=== PATIENT | female | born 1930 | race Caucasian/White ===

== ENCOUNTER 2018-08-20 13:24 | Inpatient (IN) | payer MEDICARE, BC ==
--- NOTE | 2018-08-20 13:42 | ED ---
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 The patient landed on her hip and primarily complains of left hip pain. She denies hitting her head and LOC. She rates her pain 5/10 in severity. - History of Current Complaint Stated Complaint: FALL/LEFT HIP PAIN Time Seen by Provider: 08/20/18 13:30 Hx Obtained From: Patient Mechanism of Injury: Fall Onset/Duration: Started Minutes Ago, Traumatic, Still Present Onset of Pain: Prior to Arrival Onset Severity: Moderate Current Severity: Moderate Pain Scale Used: 0-10 Numeric - Allergy/Home Medications Allergies/Adverse Reactions: Allergies Allergy/AdvReac Type Severity Reaction Status Date / Time No Known Allergies Allergy Verified 08/20/18 16:16 Home Medications: Home Medications NK [No Home Medications Reported] 08/20/18 [History Confirmed 08/20/18] PMH/Surg Hx/FS Hx/Imm Hx Cardiovascular History: Reports: Hx Hypertension Respiratory History: Denies: Hx Asthma - Cancer History Hx Chemotherapy: No Hx Radiation Therapy: No - Family History Known Family History: Negative: Cardiac Disease, Hypertension - Social History Substance Use Type: Reports: None Hx Tobacco Use: No Review of Systems Positive: Other - Left Hip pain Negative: Syncope All Other Systems Reviewed And Are Negative: Yes Physical Exam - Summary Physical Exam Summary: VITAL SIGNS: Reviewed. GENERAL: Patient is a well-developed and nourished FEMALE who is lying comfortable in the stretcher. Patient is in distress secondary to pain in the left hip. HEAD AND FACE: No signs of trauma. No ecchymosis, hematomas or skull depressions. No sinus tenderness. EYES: PERRLA, EOMI x 2, No injected conjunctiva, no nystagmus. EARS: Hearing grossly intact. Ear canals and tympanic membranes are within normal limits. MOUTH: Oropharynx within normal limits. NECK: Supple, trachea is midline, no adenopathy, no JVD, no carotid bruit, no c- spine tenderness, neck with full ROM. CHEST: Symmetric, no tenderness at palpation LUNGS: Clear to auscultation bilaterally. No wheezing or crackles. CVS: Regular rate and rhythm, S1 and S2 present, no murmurs or gallops appreciated. ABDOMEN: Soft, non-tender. No signs of distention. No rebound no guarding, and no masses palpated. Bowel sounds are normal. EXTREMITIES: FROM in all major joints, no edema, no cyanosis or clubbing. Tenderness in her left hip with no ecchymosis, no deformity. Good pulses and capillary refill. NEURO: Alert and oriented x 3. No acute neurological deficits. Speech is normal and follows commands. SKIN: Dry and warm Triage Information Reviewed: Yes Vital Signs Reviewed: Yes Diagnostics - Laboratory Result Diagrams: 08/20/18 14:09 08/20/18 14:09 Lab Statement: Any lab studies that have been ordered have been reviewed, and results considered in the medical decision making process. - Radiology CXR Radiology Interpretation Completed By: Radiologist Summary of Radiographic Findings: Cardiomegaly. No active cardiopulmonary disease. ED Provider has reviewed this report. Left Hip XR Radiology Interpretation Completed By: Radiologist Summary of Radiographic Findings: Angulated fracture of the proximal left femur. ED Provider has reviewed this report. Adult Trauma Course/Dx - Course Course Of Treatment: Consulted with Dr. Chapman, Orthopedics at 1522 and she accepted the patient for surgery. Assessment/Plan: Blood work without any significant abnormality except for WBCs of 18.6, hemoglobin 9.6, hematocrit is 30 and platelets 346. Hip x-ray shows an angulated fracture of the proximal left femur. Chest x-ray impression: Cardiomegaly. No active Cardiopulmonary disease. I discussed the case with Dr. Reza from orthopedics and he reports that he is unable to perform the surgery for this patient and he recommends for the patient to be transferred to another hospital or to consult with Dr. Chapman from the other group. Therefore discussed the case with Dr. Chapman and he accepted the patient for consultation. He recommends admission to the medical team. I discussed the case with Dr. Moses from the hospital services and she agrees to admit the patient to his services for further workup and management. - Diagnoses Differential Diagnosis/HQI/PQRI: Positive: Contusion(s), Fracture, Dislocation, Sprain, Strain Provider Diagnoses: Femur fracture, left - Physician Notifications Discussed Care Of Patient With: Mykel Erwin - Orthopedics Time Discussed With Above Provider: 15:11 - Recommended to transfer or wait for Dr. Chapman to come on shift. Instructed by Provider To: Transfer Discharge - Sign-Out/Discharge Documenting (check all that apply): Patient Departure - Admission Patient Received Moderate/Deep Sedation with Procedure: No - Discharge Plan Condition: Stable Disposition: ADMITTED TO [facility] Referrals: Mandi Oliveira PUBLIC HEALTH PHYSICIAN [Primary Care Provider] - - Billing Disposition and Condition Condition: STABLE Disposition: Admitted to [facility] - Attestation Statements Document Initiated by Priya: Yes Documenting Scribe: Jorge Mejia Provider For Whom Priya is Documenting (Include Credential): Travon Hein MD Scribe Attestation: Jorge Mejias, scribed for Travon Hein MD on 08/20/18 at 1828. Scribe Documentation Reviewed: Yes Provider Attestation: The documentation as recorded by the Jorge weeks accurately reflects the service I personally performed and the decisions made by , Travon Hein MD Status of Scribe Document: Viewed
[2018-08-20 14:16] LABS: ABS Basophils 0.2 10^3/ul (0-0.2); ABS Eosinophils 0 10^3/ul (0-0.6); ABS Lymphocytes 0.7 10^3/ul (1.0-4.8); ABS Neutrophils 16.7 10^3/ul (1.5-7.7); ABS Nucleated RBC 0 10^3/ul; Eosinophil % 0.2 %; Hematocrit 30 % (35-47); Hemoglobin 9.6 g/dl (12.0-16.0); Lymphocyte % 3.9 %; Mean Corpuscular HGB Conc 33 g/dl (31-36); Mean Corpuscular Hemoglobin 31 pg (27-31); Mean Corpuscular Volume 96 fL (80-97); Mean Platelet Volume 7.4 fL (7.4-10.4); Nucleated Red Blood Cells % 0; Platelet Count 346 10^3/ul (150-450); Red Blood Count 3.09 10^6/ul (4.00-5.40); Red Cell Distribution Width 13 % (10.5-15); White Blood Count 18.6 10^3/ul (3.5-10.8)
[2018-08-20 14:37] LABS: C Reactive Protein < 1.00 mg/L (<8.01)
[2018-08-20 15:28] LABS: Urine Appearance Cloudy; Urine Bilirubin Negative (Negative); Urine Blood Negative (Negative); Urine Color Yellow; Urine Glucose Negative (Negative); Urine Ketones Negative (Negative); Urine Nitrite Negative (Negative); Urine Protein Negative (Negative); Urine Specific Gravity 1.012 (1.010-1.030); Urine Urobilinogen Negative (Negative)
[2018-08-20] MEDS ORDERED: Morphine VIAL* 10 MG/ML 1 ML VIAL IV ONE (16:08)
[2018-08-20] MEDS ORDERED: Ondansetron INJ* 2 MG/ML VIAL IV ONE (16:08)
[2018-08-20] MEDS ORDERED: Morphine VIAL* 4 MG/ML VIAL (1 ml vial) ONE (16:14)
[2018-08-20] MEDS ORDERED: Morphine VIAL* 4 MG/ML VIAL (1 ml vial) IV PRN (17:14)
[2018-08-20 17:51] LABS: % Iron Saturation 27 % (15-55); Iron 88 ug/dL (50-212); Total Iron Binding Capacity 332 mcg/dL (250-450); Transferrin 237 mg/dL (203-362)
[2018-08-20 18:11] LABS: Ferritin 22.2 ng/mL (11-307)
[2018-08-20 18:14] LABS: Folate > 20.00 ng/mL (>3.99)
[2018-08-20] MEDS: NS 0.9% 1000 ML** 1,000 ML IV SCH (18:51)
[2018-08-20 18:57] LABS: ALT 10 U/L (7-52); AST 20 U/L (13-39); Albumin 3.6 g/dL (3.2-5.2); Albumin/Globulin Ratio 1.3 (1-3); Alkaline Phosphatase 49 U/L (34-104); Anion Gap 12 mmol/L (2-11); BUN/Creatinine Ratio 18.9 (8-20); Blood Urea Nitrogen 31 mg/dL (6-24); CO2 Carbon Dioxide 20 mmol/L (22-32); Calcium 10.3 mg/dL (8.6-10.3); Chloride 108 mmol/L (101-111); EGFR African American 35.9 (>60); EGFR Non-African American 29.7 (>60); Globulin 2.8 g/dL (2-4); Glucose 176 mg/dL (70-100); Potassium 4.5 mmol/L (3.5-5.0); Sodium 140 mmol/L (135-145); Total Protein 6.4 g/dL (6.4-8.9)
--- NOTE | 2018-08-20 20:01 | HP ---
CC: Mandi Oliveira NP; Dr. Chapman * HISTORY AND PHYSICAL: DATE OF ADMISSION: 08/20/18 PRIMARY CARE PROVIDER: Mandi Oliveira NP CHIEF COMPLAINT: Status post fall and left hip pain. HISTORY OF PRESENT ILLNESS: Sue Hayes is an 88-year-old female with no significant past medical history, who presented to the hospital with a complaint of left hip pain after a fall. The patient stated that she tripped on a carpet in her apartment. She came into the ED with complaints of left hip pain and she was noted to have fracture. Dr. Chapman plans to take the patient to the surgery tomorrow morning. PAST MEDICAL HISTORY: History of bilateral cataract surgery in the past. MEDICATIONS: None. ALLERGIES: No known drug allergies. FAMILY HISTORY: Father with history of heart disease, who in his 70s due to heart issues and mother who had history of stomach cancer. SOCIAL HISTORY: The patient is recently as of several months ago. She lives alone in 1-level home. There is no history of tobacco, alcohol, or drug use. Her surrogate is her son, Shane Hayes. REVIEW OF SYSTEMS: Please see history of present illness. The patient stated that she had been in her usual state of health until she fell. She denies any dizziness, chest pain, shortness of breath, or loss of consciousness during the fall. She stated that she merely tripped. She has no history of exercise intolerance and she never had any cardiac issues. All the remaining 12 systems were reviewed with the patient and were otherwise negative. PHYSICAL EXAMINATION GENERAL: The patient is a very pleasant 88-year-old female, who is in no acute distress. Alert, awake, and oriented x3. VITAL SIGNS: Blood pressure of 114/84, heart rate of 106 and regular, respiratory rate 20, oxygen saturation 99% on room air_. HEENT: Head: Atraumatic, normocephalic. Eyes: Pupils are equal, reactive to light and accommodation. Oropharynx is clear. Mucosa moist. NECK: Supple. No JVD. No bruits bilaterally. RESPIRATORY: Clear to auscultation bilaterally. CARDIOVASCULAR: Regular rate and rhythm. 1/6 systolic ejection murmur noted on auscultation of the right upper sternal border radiating to bilateral carotids. ABDOMEN: Soft, nontender. Bowel sounds are present in all 4 quadrants. EXTREMITIES: There is no edema. Pulses are +2 bilaterally. No clubbing or cyanosis. The left hip is externally rotated and shortened. NEUROLOGIC: Speech is clear. Cranial nerves II through XII are grossly intact. Motor strength is 5/5 bilaterally. PSYCHIATRIC: Very pleasant, cooperative with evaluation, and oriented x3 with no evidence of anxiety or depression. SKIN: On evaluation of the skin, no ecchymotic areas or rashes noted. DIAGNOSTIC STUDIES/LAB DATA: Showed white blood cell count of 18.6, hemoglobin of 9.6, hematocrit of 30, platelets of 346, MCV of 96. CRP of below 1. Remaining chemistries still pending at the time of dictation. Urinalysis was grossly unremarkable. Hip x-ray obtained on 08/20/18, impression: "Angulated fracture of the proximal left femur." The patient's EKG showed sinus tachycardia with a heart rate of 103 beats per minute with likely LVH. There were no old EKGs for comparison. There were nonspecific ST changes in lateral leads from V4 to V6. Chest x-ray, impression: "Cardiomegaly with no active cardiopulmonary disease. " ASSESSMENT AND PLAN: Sue Hayes is an 88-year-old female with no significant past medical history, who presented after a mechanical fall with left hip fracture. The patient was seen by Dr. Chapman' physician assistant finance director and is planned for surgery in the morning. At this point, her RCRI score is 0. She is an acceptable candidate for the anticipated surgery. She is going to be placed n.p.o. in the morning. She has mild normocytic anemia. She is asymptomatic from that standpoint. We are going to repeat the lab work in the morning to confirm. Her chemistry panel is still pending at the time of dictation. For DVT prophylaxis, the patient is going to be placed on heparin subcutaneously. The patient's code status is full. Her surrogate is her son, Shane, as mentioned above. TIME SPENT: Approximately 65 minutes was spent on admission of this patient, more than half that time was spent [id number] with the patient during the interview and physical exam. [id number]/[facility] #: [id number] SORAYA
[2018-08-20] MEDS ORDERED: Heparin VIAL(*) 5000 UNITS/ML VIAL (FIVE THOUSAND) SUBCUT SCH (22:00)
--- NOTE | 2018-08-20 22:18 | CONS ---
ORTHOPEDIC CONSULTATION: DATE OF CONSULT: 08/20/18 ATTENDING PHYSICIAN: Dr. Jorge Chapman. CHIEF COMPLAINT: Left hip pain. HISTORY OF PRESENT ILLNESS: The patient is an 88-year-old pleasant female who presented [place] [facility] [place] at her home trying to brass pickler some salt that was on her rug. She fell on her left side and was unable to ambulate due to severe femur pain. She denies loss of consciousness. She denies hitting her head. She denies other bodily injury upon her fall. PAST MEDICAL HISTORY: Significant for hypertension. MEDICATIONS: She states she takes no regular medications, only takes a multivitamin daily. ALLERGIES: She denies allergy to medications. FAMILY HISTORY: Noncontributory. SOCIAL HISTORY: The patient denies use of alcohol or tobacco or illicit drug use. REVIEW OF SYSTEMS: The patient denies recent loss of consciousness, lightheadedness, dizziness, shortness of breath, chest pain, palpitations, gastrointestinal or genitourinary discomfort. PHYSICAL EXAMINATION: The patient is lying in the emergency room supine. She is alert and oriented x3, in no acute distress, pleasant and cooperative. HEENT : PERRLA. Neck: Supple. Lungs are clear to auscultation. Heart: Regular rate and rhythm. Abdomen: Soft, nontender. Upper extremities within normal limits. Lower extremity shows external rotation and shortening of the left lower extremity. She is able to actively dorsiflex her ankle. She has a 2+ pedal pulse. Her foot is pink and warm. DIAGNOSTIC STUDIES/LAB DATA: Current lab studies reveal a white count of 18.6, hemoglobin 9.6, hematocrit 30. X-ray examination of the left hip revealed displaced angulated subtrochanteric proximal femur fracture. IMPRESSION: Subtrochanteric left femur fracture from mechanical fall. PLAN: The patient is admitted to Dr. Moses/medical service. She will be n.p.o. after midnight tonight for a probable long intramedullary gamma nail in the morning, 08/21/18, with Dr. Jorge Chapman. I briefly discussed the nature of her injury and the need for surgical fixation. She understands and she elects to proceed. She will need to be on a blood thinner postoperatively to help prevent DVT. She lives alone and may require rehab prior to returning to independent status. She will be seen in the morning by Dr. Chapman prior to surgery. KALYANI CALLAWAY [id number]/[facility] #: [id number] [facility]ITALSyd[place]
[2018-08-20] MEDS: Acetaminophen TAB* 325 MG PO PRN (23:33)
[2018-08-21] MEDS: NS 0.9% 1000 ML** 1,000 ML IV SCH (04:43)
[2018-08-21 06:11] LABS: ABS Basophils 0 10^3/ul (0-0.2); ABS Eosinophils 0 10^3/ul (0-0.6); ABS Lymphocytes 1.8 10^3/ul (1.0-4.8); ABS Monocytes 1.5 10^3/ul (0-0.8); ABS Neutrophils 9.3 10^3/ul (1.5-7.7); ABS Nucleated RBC 0 10^3/ul; Eosinophil % 0.2 %; Hematocrit 24 % (35-47); Hemoglobin 7.8 g/dl (12.0-16.0); Lymphocyte % 14.3 %; Mean Corpuscular HGB Conc 33 g/dl (31-36); Mean Corpuscular Hemoglobin 32 pg (27-31); Mean Corpuscular Volume 95 fL (80-97); Mean Platelet Volume 7.6 fL (7.4-10.4); Nucleated Red Blood Cells % 0; Platelet Count 253 10^3/ul (150-450); Red Blood Count 2.47 10^6/ul (4.00-5.40); Red Cell Distribution Width 13 % (10.5-15); White Blood Count 12.7 10^3/ul (3.5-10.8)
[2018-08-21 06:26] LABS: BUN/Creatinine Ratio 18.5 (8-20); EGFR African American 28.6 (>60); EGFR Non-African American 23.6 (>60); Potassium 4.5 mmol/L (3.5-5.0)
--- NOTE | 2018-08-21 08:27 | PN ---
Progress Note - Progress Note Date of Service: 08/21/18 Note: The patient had a comminuted reverse obliquity peritrochanteric fracture of the left hip. Please see the full consult note dictated by KALYANI Junior. We will plan for surgical stabilization with a long cephalomedullary implant ( long gamma nail) this morning.
[2018-08-21 08:36] LABS: Activated Partial Thrombo Time 26.8 seconds (26.0-36.3); INR 0.99 (0.77-1.02)
[2018-08-21] MEDS ORDERED: ceFAZolin 2 GM PREMIX in ORs 2 GM/50 ML BAG IVPB ONE (10:43)
[2018-08-21] MEDS ORDERED: Sodium Citrate/Citric Acid* 15 ML UDC ONE (10:43)
[2018-08-21] MEDS ORDERED: Propofol* 10 MG/ML 20 ML BTL ONE (11:04)
[2018-08-21] MEDS ORDERED: fentaNYL* 50 MCG/ML 2 ML VIAL (100 MCG VIAL) ONE ×2 (11:05→14:59)
[2018-08-21] MEDS ORDERED: Lidocaine 2% PF * 5 ML VIAL ONE (11:07)
[2018-08-21] MEDS ORDERED: Bupivacaine 0.5% W/EPI SDV* 30 ML VIAL ONE (12:57)
[2018-08-21] MEDS ORDERED: Morphine VIAL* 4 MG/ML VIAL (1 ml vial) IV PRN (14:14)
[2018-08-21] MEDS ORDERED: Bisacodyl SUPP* 10 MG SUPP PR PRN (14:14)
[2018-08-21] MEDS ORDERED: Ondansetron INJ* 2 MG/ML VIAL IV PRN (14:14)
[2018-08-21] MEDS ORDERED: diPHENhydraMINE IV* 50 MG/ML 1 ml VIAL (BENADRYL) IV PRN (14:14)
[2018-08-21] MEDS ORDERED: Magnesium Hydroxide LIQ* 30 ML UDC PO PRN (14:14)
[2018-08-21] MEDS ORDERED: Naloxone* 0.4 MG/ML 1 ML VIAL IV PRN (14:56)
[2018-08-21] MEDS ORDERED: Lactated Ringers 1000 ML Bag* 1,000 ML IV SCH (15:00)
[2018-08-21] MEDS: fentaNYL* 50 MCG/ML 2 ML VIAL (100 MCG VIAL) IV PRN ×2 (15:01→15:16)
[2018-08-21] MEDS ORDERED: oxyCODONE/Acetamin 5/325 MG* TAB ONE (15:07)
[2018-08-21] MEDS: oxyCODONE/Acetamin 5/325 MG* TAB PO PRN (15:11)
[2018-08-21 15:44] LABS: Hematocrit 27 % (35-47); Hemoglobin 8.9 g/dl (12.0-16.0)
--- NOTE | 2018-08-21 16:36 | PN ---
Subjective Date of Service: 08/21/18 Interval History: Pt is seen post op . Was not aware of anemia or CKD. Post op pain is controlled Objective Active Medications: Acetaminophen (Tylenol Tab*) 650 mg PO Q4H PRN PRN Reason: FEVER/PAIN Last Admin: 08/20/18 23:33 Dose: 650 mg Bisacodyl (Dulcolax Supp*) 10 mg SD DAILY PRN PRN Reason: constipation Diphenhydramine HCl (Benadryl Iv*) 25 mg IV Q6H PRN PRN Reason: itching Docusate Sodium (Colace Cap*) 100 mg PO BID [facility] Fentanyl Citrate (Fentanyl*) 25 mcg IV Q2M PRN PRN Reason: PAIN - MODERATE Last Admin: 08/21/18 15:16 Dose: 25 mcg Heparin Sodium (Porcine) (Heparin Vial(*)) 5,000 units SUBCUT Q8HR [facility] Sodium Chloride (Ns 0.9% 1000 Ml) 1,000 mls @ 100 mls/hr IV PER RATE [facility] Last Admin: 08/21/18 04:43 Dose: 100 mls/hr Cefazolin Sodium 1 gm/ Sodium (Chloride) 50 mls @ 200 mls/hr IVPB Q8H [facility] Stop: 08/22/18 11:44 Lactated Ringer's (Lactated Ringers 1000 Ml Bag*) 1,000 mls @ 75 mls/hr IV PER RATE [facility] Magnesium Hydroxide (Milk Of Magnesia Liq*) 30 ml PO BID [facility] Magnesium Hydroxide (Milk Of Magnesia Liq*) 30 ml PO Q6H PRN PRN Reason: constipation Morphine Sulfate (Morphine Vial*) 1 mg IV Q4H PRN PRN Reason: PAIN - MILD Morphine Sulfate (Morphine Vial*) 2 mg IV Q2H PRN PRN Reason: PAIN Multivitamins (Theragran Tab*) 1 tab PO DAILY [facility] Naloxone HCl (Narcan*) 0.08 mg IV Q2M PRN PRN Reason: severe induced resp depression Ondansetron HCl (Zofran Inj*) 4 mg IV Q6H PRN PRN Reason: nausea Oxycodone/Acetaminophen (Percocet 5/325 Tab*) 1 tab PO Q4H PRN PRN Reason: PAIN Last Admin: 08/21/18 15:11 Dose: 1 tab Vital Signs - 8 hr 08/21/18 08/21/18 08/21/18 09:27 09:44 14:15 Temperature 98.0 F 97.9 F 96.8 F Pulse Rate 94 98 99 Respiratory 18 Rate Blood Pressure 137/47 155/40 (mmHg) O2 Sat by Pulse 100 100 100 Oximetry 08/21/18 08/21/18 08/21/18 14:18 14:20 14:26 Temperature Pulse Rate 94 96 96 Respiratory 28 Rate Blood Pressure 211/94 200/120 183/71 (mmHg) O2 Sat by Pulse 100 100 100 Oximetry 08/21/18 08/21/18 08/21/18 14:31 14:36 15:00 Temperature Pulse Rate 95 94 102 Respiratory 22 29 23 Rate Blood Pressure 183/75 199/67 (mmHg) O2 Sat by Pulse 100 99 98 Oximetry 08/21/18 08/21/18 08/21/18 15:01 15:02 15:11 Temperature Pulse Rate 105 Respiratory 16 28 14 Rate Blood Pressure 173/96 (mmHg) O2 Sat by Pulse 97 Oximetry 08/21/18 08/21/18 08/21/18 15:15 15:16 15:30 Temperature 98.6 F Pulse Rate 103 104 Respiratory 23 16 22 Rate Blood Pressure 181/100 177/57 (mmHg) O2 Sat by Pulse 100 98 Oximetry 08/21/18 15:45 Temperature Pulse Rate 107 Respiratory 18 Rate Blood Pressure 142/73 (mmHg) O2 Sat by Pulse 99 Oximetry Oxygen Devices in Use Now: None Appearance: 88 yo F in nAD, aAOx3 Eyes: No Scleral Icterus, PERRLA Ears/Nose/Mouth/Throat: NL Teeth, Lips, Gums, Mucous Membranes Moist Neck: NL Appearance and Movements; NL JVP, Trachea Midline Respiratory: Symmetrical Chest Expansion and Respiratory Effort, Clear to Auscultation Cardiovascular: RRR, - - 2/6 CRAIG Abdominal: NL Sounds; No Tenderness; No Distention, No Hepatosplenomegaly Lymphatic: No Cervical Adenopathy Extremities: No Clubbing, Cyanosis, - - mild left thigh edema, post op dressings not removed Skin: No Rash or Ulcers, No Nodules or Sclerosis Neurological: Alert and Oriented x 3, NL Muscle Strength and Tone Result Diagrams: 08/21/18 15:37 08/21/18 05:48 Assess/Plan/Problems-Billing Assessment: 88 yo F with CKD stage 3 s/p left hip ORIF on 08/21/18 - Patient Problems (1) Closed left hip fracture Comment: was in OR today as per ortho (2) MODESTO (acute kidney injury) Comment: On CKD-although pt was not aware of that her creat in the past had been at 1.5 range today is at 2, renal US pending. cont IVF UA unremarkable (3) Normocytic anemia Comment: no evidcence of abnormality on iron studies. S/p 1 u PRBC transfused preop. will check stool guaiac retic count (4) DVT prophylaxis Comment: HSQ Status and Disposition: inpatient
--- NOTE | 2018-08-21 16:48 | OP ---
DATE OF OPERATION: 08/21/18 - ROOM #347 DATE OF : 32 SURGEON: Dr. Jorge Chapman. CAR RENTAL MANAGER: KALYANI Henry. An plumber assistant was needed for the procedure to hold the reduction of the bone. ANESTHESIOLOGIST: Dr. Quintero. ANESTHESIA: General. PRE-OP DIAGNOSIS: Left peritrochanteric comminuted reverse obliquity hip fracture. POST-OP DIAGNOSIS: Left peritrochanteric comminuted reverse obliquity hip fracture. PROCEDURE PERFORMED: Open reduction and intramedullary fixation of left hip fracture with long gamma nail implant. INDICATIONS: Sue has the reverse obliquity fracture. We talked about risks and benefits. She wanted to proceed with surgery. ESTIMATED BLOOD LOSS: 50 mL. COMPLICATIONS: None. FINDINGS: See above and below. DESCRIPTION OF PROCEDURE: Sue was seen in the preoperative area. The correct site, side, and procedure were identified. We came back to the operating room. Anesthesia was induced. The right leg was placed in the well- leg shukla. The left leg was placed in traction. After we got everything positioned and ready, we brought in the C-arm fluoroscopy and I confirmed that we were near reduction and out to length with the C-arm. We then washed and prepped and placed the shower curtain in standard fashion. A time-out was performed. I first confirmed the location where I wanted the ball tip type device to go. I then made a stab incision with a thin blade not more than a few millimeters wide. I placed the tip of the 4.2 mm drill bit off of the Tsaile gamma nail set on to my lateral spike of femur and I used this to reduce the bone. It lined up almost perfectly. I then had my plumber assistant hold that reduction throughout the case. I then made a 5 to 7 cm incision proximal to the greater trochanter. The starting point was obtained with the guidewire. This was then advanced down past the lesser trochanter. Initially, my first guidewire was a little anterior and so I used the guide from the Slim set to place the second guidewire parallel to the first, but just a little bit more posterior. I then overdrilled that wire past the lesser troch, removed the wire and the drill, and then placed the ball-tip wire down to the level of the superior aspect of the patella. A 360 mm nail was selected. The 11 x 360 mm x 125 degree gamma nail was inserted on the back table and the distal aiming guide for the distal Crosslock was calibrated. I then placed the nail uneventfully into the patient. The correct location was set. I then used the triple barrel guide for the lag screw to place the pin up into the center-center position. This was confirmed on AP and lateral fluoroscopy. I then measured and drilled to 100 and then placed a 100 mm screw in standard fashion. Once I had confirmed the placement of the screw on AP and lateral imaging, we came distally. We did the appropriate fluoroscopic technique for the distal Crosslock aiming guide. I then placed 2 screws in the static position, one was a 45 mm and the more distal screw was a 50 mm screw. We then confirmed final fluoroscopic imaging. We then removed the insertion arm of the gamma nail. The wounds were irrigated out. I put a couple of deep 0 Vicryl sutures in the proximal wound. The remainder of the wounds were irrigated and closed with ghanshyam. Marcaine 0.25% with epinephrine was infiltrated all around the operative area. The wounds were dressed with Xeroform, 4x4s, and Tegaderms. She was then woken up and taken to the recovery room in stable condition. [id number]/[facility] #: [id number] SORAYA
[2018-08-21] MEDS: ceFAZolin 1 GM ADVAN(*) 1 GM in NS 0.9% 50 ML* 50 ML IVPB SCH (19:30)
[2018-08-21] MEDS: Heparin VIAL(*) 5000 UNITS/ML VIAL (FIVE THOUSAND) SUBCUT SCH (22:22)
[2018-08-21] MEDS: Magnesium Hydroxide LIQ* 30 ML UDC PO SCH (22:25)
[2018-08-21] MEDS: Docusate CAP* 100 MG PO SCH (22:25)
[2018-08-22] MEDS: oxyCODONE/Acetamin 5/325 MG* TAB PO PRN ×3 (03:34→21:03)
[2018-08-22] MEDS: ceFAZolin 1 GM ADVAN(*) 1 GM in NS 0.9% 50 ML* 50 ML IVPB SCH ×2 (03:42→12:31)
[2018-08-22] MEDS: Heparin VIAL(*) 5000 UNITS/ML VIAL (FIVE THOUSAND) SUBCUT SCH ×3 (04:53→21:06)
[2018-08-22 05:49] LABS: ABS Basophils 0 10^3/ul (0-0.2); ABS Eosinophils 0 10^3/ul (0-0.6); ABS Lymphocytes 1.2 10^3/ul (1.0-4.8); ABS Monocytes 1.5 10^3/ul (0-0.8); ABS Neutrophils 9.2 10^3/ul (1.5-7.7); ABS Nucleated RBC 0 10^3/ul; Corrected Retic Count 0.7 % (0.5-1.5); Eosinophil % 0.4 %; Hematocrit 21 % (35-47); Hematocrit for Retic CNT 21 % (35-47); Hemoglobin 6.9 g/dl (12.0-16.0); Immature Retic Fraction 0.51; Lymphocyte % 10.3 %; Mean Corpuscular HGB Conc 34 g/dl (31-36); Mean Corpuscular Hemoglobin 31 pg (27-31); Mean Corpuscular Volume 94 fL (80-97); Mean Platelet Volume 7.5 fL (7.4-10.4); Nucleated Red Blood Cells % 0; Platelet Count 203 10^3/ul (150-450); RBC Retic Count 2.19 10^6/ul (4.6-6.2); Red Blood Count 2.19 10^6/ul (4.00-5.40); Red Cell Distribution Width 14 % (10.5-15)
[2018-08-22 06:05] LABS: BUN/Creatinine Ratio 20.1 (8-20); EGFR African American 30.5 (>60); EGFR Non-African American 25.2 (>60); Magnesium 1.5 mg/dL (1.9-2.7); Potassium 4.4 mmol/L (3.5-5.0)
[2018-08-22] MEDS ORDERED: Furosemide IV* 10 MG/ML 2 ML VIAL (20 MG) IV ONE (08:10)
--- NOTE | 2018-08-22 08:18 | PN ---
Subjective Date of Service: 08/22/18 Interval History: Pt feels ell. Slept well. Tachycardic and hypertensive last night Objective Active Medications: Acetaminophen (Tylenol Tab*) 650 mg PO Q4H PRN PRN Reason: FEVER/PAIN Last Admin: 08/20/18 23:33 Dose: 650 mg Bisacodyl (Dulcolax Supp*) 10 mg LA DAILY PRN PRN Reason: constipation Diphenhydramine HCl (Benadryl Iv*) 25 mg IV Q6H PRN PRN Reason: itching Docusate Sodium (Colace Cap*) 100 mg PO BID [facility] Last Admin: 08/21/18 22:25 Dose: Not Given Heparin Sodium (Porcine) (Heparin Vial(*)) 5,000 units SUBCUT Q8HR [facility] Last Admin: 08/22/18 04:53 Dose: 5,000 units Cefazolin Sodium 1 gm/ Sodium (Chloride) 50 mls @ 200 mls/hr IVPB Q8H [facility] Stop: 08/22/18 11:44 Last Admin: 08/22/18 03:42 Dose: 200 mls/hr Magnesium Hydroxide (Milk Of Magnesia Liq*) 30 ml PO BID [facility] Last Admin: 08/21/18 22:25 Dose: Not Given Magnesium Hydroxide (Milk Of Magnesia Liq*) 30 ml PO Q6H PRN PRN Reason: constipation Morphine Sulfate (Morphine Vial*) 1 mg IV Q4H PRN PRN Reason: PAIN - MILD Morphine Sulfate (Morphine Vial*) 2 mg IV Q2H PRN PRN Reason: PAIN Last Admin: 08/22/18 04:51 Dose: 2 mg Multivitamins (Theragran Tab*) 1 tab PO DAILY [facility] Ondansetron HCl (Zofran Inj*) 4 mg IV Q6H PRN PRN Reason: nausea Oxycodone/Acetaminophen (Percocet 5/325 Tab*) 1 tab PO Q4H PRN PRN Reason: PAIN Last Admin: 08/22/18 03:34 Dose: 1 tab Vital Signs - 8 hr 08/22/18 08/22/18 08/22/18 00:20 02:39 03:34 Temperature 98.4 F Pulse Rate 109 Respiratory 16 18 Rate Blood Pressure 141/47 (mmHg) O2 Sat by Pulse 98 98 Oximetry 08/22/18 08/22/1808/22/19 03:47 04:51 05:53 Temperature 97.4 F Pulse Rate 100 Respiratory 16 18 18 Rate Blood Pressure 161/39 (mmHg) O2 Sat by Pulse 100 Oximetry 08/22/18 06:10 Temperature Pulse Rate Respiratory 18 Rate Blood Pressure (mmHg) O2 Sat by Pulse Oximetry Oxygen Devices in Use Now: None Appearance: 88 yo F in nAD, aAOx3 Eyes: No Scleral Icterus, PERRLA Ears/Nose/Mouth/Throat: NL Teeth, Lips, Gums, Mucous Membranes Moist Neck: NL Appearance and Movements; NL JVP, Trachea Midline Respiratory: Symmetrical Chest Expansion and Respiratory Effort, Clear to Auscultation Cardiovascular: RRR, - - 2/6 CRAIG Abdominal: NL Sounds; No Tenderness; No Distention Lymphatic: No Cervical Adenopathy Extremities: No Edema, No Clubbing, Cyanosis Skin: No Nodules or Sclerosis, - - left hip incision not uncovered from post op dressings Neurological: Alert and Oriented x 3, NL Muscle Strength and Tone Result Diagrams: 08/22/18 05:33 08/22/18 05:33 Assess/Plan/Problems-Billing Assessment: 88 yo F with CKD stage 3 s/p left hip ORIF on 08/21/18 - Patient Problems (1) Closed left hip fracture Comment: s/p left hip ORIF on 08/21/18 as per ortho (2) MODESTO (acute kidney injury) Comment: On CKD-although pt was not aware of that her creat in the past had been at 1.5 range today is at 1.8, renal US unremarkable UA unremarkable (3) Normocytic anemia Comment: no evidence of abnormality on iron studies. S/p 1 u PRBC transfused preop.Today Hb<7, pt is tachycardic. will transfuse another Unit will check stool guaiac retic count minimally elevated (4) DVT prophylaxis Comment: HSQ Status and Disposition: inpatient
[2018-08-22] MEDS ORDERED: Magnesium Sulfate IV* 3 GM in NS 0.9% 100 ML* 100 ML IVPB ONE (08:30)
--- NOTE | 2018-08-22 09:05 | PN ---
Progress Note - Progress Note Date of Service: 08/22/18 SOAP: Subjective: [The pt was seen lying in bed today. States that her pain is well controlled with oral pain medication. Denies any chest pain, SOB. nausea, vomiting. ] Objective: [General: Pt is alert and oriented. NAD MSK, LLE: Dressings are c/d/i. No erythema or ecchymosis seen. +df/pf. NVI and 2 + DP pulse. Calf soft and non tender. ] Vital Signs Temp 97.9 F 08/22/18 07:55 Pulse 99 08/22/18 07:55 Resp 16 08/22/18 07:55 BP 144/36 08/22/18 07:55 Pulse Ox 99 08/22/18 07:55 Intake & Output 08/21/18 08/22/18 08/22/18 18:59 06:59 18:59 Intake Total 750 510 Output Total 250 325 Balance 500 185 Intake: IV Fluids 750 50 ABX - CEFAZOLIN 50 LR 700 NS 50ML, Cefazolin 2G 50 Oral 460 Output: [place] 150 325 Estimated Blood Loss 100 Assessment: [POD Left long gamma nail Low H&H] Plan: [ Hospitalists have ordered a transfusion per protocol WBAT LLE PT/OT to start today Heparin 5000 q8 for DVT prophylaxis Dressing change to occur tomorrow ]
[2018-08-22] MEDS: Docusate CAP* 100 MG PO SCH ×2 (09:19→21:02)
[2018-08-22] MEDS: Magnesium Hydroxide LIQ* 30 ML UDC PO SCH ×2 (09:20→21:05)
[2018-08-22] MEDS: Vitamin THERAPEUTIC TAB PO SCH (09:20)
[2018-08-23] MEDS: Heparin VIAL(*) 5000 UNITS/ML VIAL (FIVE THOUSAND) SUBCUT SCH (05:27)
[2018-08-23] MEDS: oxyCODONE/Acetamin 5/325 MG* TAB PO PRN ×2 (05:30→13:47)
[2018-08-23 06:11] LABS: Hematocrit 27 % (35-47); Hemoglobin 8.8 g/dl (12.0-16.0); Mean Corpuscular HGB Conc 33 g/dl (31-36); Mean Corpuscular Hemoglobin 31 pg (27-31); Mean Corpuscular Volume 93 fL (80-97); Mean Platelet Volume 7.9 fL (7.4-10.4); Platelet Count 212 10^3/ul (150-450); Red Blood Count 2.85 10^6/ul (4.00-5.40); Red Cell Distribution Width 15 % (10.5-15); White Blood Count 12.6 10^3/ul (3.5-10.8)
[2018-08-23 06:32] LABS: BUN/Creatinine Ratio 24.4 (8-20); EGFR Non-African American 28.9 (>60); Magnesium 2.8 mg/dL (1.9-2.7); Potassium 4.9 mmol/L (3.5-5.0)
--- NOTE | 2018-08-23 08:58 | PN ---
Progress Note - Progress Note Date of Service: 08/23/18 Note: Doing well this morning. Awake and alert. Dressings are c/d/i +TA/GS function distally POD#2 OOB, WBAT Dressing change tomorrow. F/u with me in 1.5-2 weeks for staple removal.
[2018-08-23] MEDS: Magnesium Hydroxide LIQ* 30 ML UDC PO SCH (09:00)
[2018-08-23] MEDS: Docusate CAP* 100 MG PO SCH (09:00)
[2018-08-23] MEDS: Acetaminophen TAB* 325 MG PO PRN (09:00)
[2018-08-23] MEDS: Vitamin THERAPEUTIC TAB PO SCH (09:00)
[2018-08-23 12:14] VITALS: BP 150/92
--- NOTE | 2018-08-23 13:51 | DS ---
DISCHARGE SUMMARY: DATE OF ADMISSION: 08/20/18 DATE OF DISCHARGE: 08/23/18 ADMITTING PHYSICIAN: Dr. Christelle Moses. PRIMARY CARE PHYSICIAN: Susie Aquino. CONSULTING ORTHOPEDIC SURGEON: Dr. Jorge Chapman. ATTENDING PHYSICIAN ON THE DAY OF DISCHARGE: Tarik Salazar MD. CHIEF COMPLAINT: Left hip pain status post fall. PRINCIPAL DIAGNOSIS: Left hip fracture (angulated fracture of the proximal left femur) status post open reduction and internal fixation on 08/21/18. HISTORY OF PRESENT ILLNESS AND HOSPITAL COURSE: Sue Hayes is an 88-year-old female with no reported past medical history but with evidence of some chronic kidney disease stage 3B back in August 2017 and presenting with normocytic anemia (hemoglobin 9.6, MCV in the mid 90s). She was in her usual state of health when she tripped on a rug, resulting in mechanical fall that resulted in fracture of her left proximal femur. She was taken to the OR with Dr. Chapman on 08/21/18. Her course was complicated by postoperative acute blood loss anemia for which she got 2 units of packed red blood cells the day prior to discharge. Her hemoglobin improved from 6.9 to 8.8, hematocrit improved from 21 % to 27%. Course has also been complicated with acute kidney injury on hospital day #2 and acute urinary retention. She had her Davenport pulled night prior to discharge, and had to be straight cath'ed at 10 p.m. She has still not voided. I am going to replace her Davenport catheter. She is being discharged for further rehabilitation at the PMR unit. She is getting pain control with oxycodone 1 tab q.4 hours p.r.n. She says she has not yet walked with Physical Therapy. DISCHARGE MEDICATIONS: Include: 1. Docusate 100 mg p.o. b.i.d. 2. Tylenol 650 mg p.o. q.4 hours p.r.n. 3. Oxycodone/acetaminophen 1 tab p.o. q.4 hours p.r.n. FOLLOWUP: Her preferences for PCP followup is with CUSTOMER QUALITY ENGINEER Susie Aquino who she has seen in the past or alternatively someone within Dr. Lozano's practice. For ObGYN needs she also follows with LANRE Oliveira .Please follow up with Dr. Chapman as well, please call his office. DISCHARGE DIET: On no restrictions. DISPO: PMRU, stable, but needing further physical rehabilitation. TIME SPENT: Time spent on discharge was 35 minutes. [id number]/[facility] #: [id number] SORAYA
== END 2018-08-23 14:00 | DRG 481 ==
LOC: ED 13:24 → SSU 17:02
PROVIDERS: ADMIT Internal Medicine; ATTEND Internal Medicine
PROC: 0T2BX0Z Change Drainage Device in Bladder, External Approach (ICD-10-PCS; 2018-08-20)
PROC: 30233N1 Transfusion of Nonautologous Red Blood Cells into Peripheral Vein, Percutaneous Approach (ICD-10-PCS; 2018-08-21)
PROC: 0QS706Z Reposition Left Upper Femur with Intramedullary Internal Fixation Device, Open Approach (ICD-10-PCS; principal; 2018-08-21 11:00)
DX: S72.22XA Displaced subtrochanteric fracture of left femur, initial encounter for closed fracture (principal); N17.9 Acute kidney failure, unspecified; D62 Acute posthemorrhagic anemia; R33.9 Retention of urine, unspecified; I12.9 Hypertensive chronic kidney disease with stage 1 through stage 4 chronic kidney disease, or unspecified chronic kidney disease; D64.9 Anemia, unspecified; N18.3 Chronic kidney disease, stage 3 (moderate); W01.0XXA Fall on same level from slipping, tripping and stumbling without subsequent striking against object, initial encounter; Z98.42 Cataract extraction status, left eye; Z98.41 Cataract extraction status, right eye; Z82.49 Family history of ischemic heart disease and other diseases of the circulatory system; Z80.0 Family history of malignant neoplasm of digestive organs; Y92.009 Unspecified place in unspecified non-institutional (private) residence as the place of occurrence of the external cause
CPT/HCPCS: 36415; 71045; 76775; 80048; 80053; 81003; 82607; 82728; 82746; 83540; 83550; 83735; 85014; 85018; 85025; 85027; 85045; 85610; 85730; 86140; 86850; 86900; 86901; 86922; 93005; 99283; A9270-GY; C1713; C1776; G8978-GP-CM; G8979-GP-CK; G8987-GO-CL; G8988-GO-CI; J0690; J1644; J2270; J2405; J2704; J3010; J3475; P9040

== ENCOUNTER 2018-08-23 12:31 | Inpatient (IN) | payer MEDICARE, BC ==
[2018-08-23] MEDS ORDERED: Magnesium Hydroxide LIQ* 30 ML UDC PO PRN (15:40)
--- NOTE | 2018-08-23 18:59 | HP ---
ADMISSION HISTORY AND PHYSICAL: DATE OF ADMISSION: 08/23/18 REASON FOR ADMISSION: Left hip fracture. HISTORY OF ILLNESS: Sue Hayes is an 88-year-old white female. She lives alone in a ranch house. On 08/20/18, she was trying to clean up some salt at the front of her house. As she did this, she lost her balance and felt onto her left hip. She was unable to get up. Luckily, the mailman came by soon thereafter and found her on the ground. 911 was called. She was brought to [facility]. At [facility], she had x-rays taken. X-rays revealed a displaced angulated fracture of the left proximal femur. She was seen in consultation by Orthopedics and admitted to the medical service. She was taken to the operating room on 08/21/18 and underwent an open reduction and intramedullary fixation of the left hip fracture with the long gamma nail. Postoperatively, the patient had some difficulty with anemia. Her hemoglobin got down to 6.9 on 08/22/18. She was transfused 2 units of packed cells. She also was noted to have an elevated creatinine at 1.8. She had a renal ultrasound which was unremarkable. Of note, her creatinine had been elevated on admission. It was 1.64. A year ago, it was 1.5. The patient was felt to have physical therapy and occupational therapy needs. She is now being admitted for inpatient rehab, so she might return to independent living. PAST MEDICAL HISTORY: Not significant outside of the chronic kidney disease. She did not see a doctor on a regular basis and was taking no regular medications. CURRENT MEDICATIONS: Include: 1. Heparin for DVT prophylaxis. 2. Percocet for pain control. 3. Bowel medications. ALLERGIES: No known drug allergies. SOCIAL HISTORY: She is a nonsmoker, nondrinker. Lives by herself in a ranch- style house. She is a recent . Her not that long ago. 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 She has 2 children, a son who lives locally and a daughter in [place]. REVIEW OF SYSTEMS: The patient reports no current shortness of breath, no chest pain. PHYSICAL EXAMINATION VITAL SIGNS: The patient's temperature is 98.2, blood pressure is 144/45, pulse 93, respirations 16. HEENT: Her extraocular movements were intact. Tongue is midline. NECK: Supple. LUNGS: Sound clear to auscultation bilaterally. HEART: Sounds were regular. S1 and S2 were audible. ABDOMEN: Soft and nontender. EXTREMITIES: Left hip has wounds, which are clean and dry. Trace edema in the left foot. Peripheral pulses were intact. NEUROLOGIC: She was awake, alert and oriented. Muscle strength 5/5 in both upper and lower extremities except the left leg, which was 3/5 secondary to pain. FUNCTIONAL EXAM: She transfers with min-to-mod assist. ASSESSMENT: 1. Left hip fracture. 2. Chronic kidney disease. PLAN: Integrate her into a comprehensive and therapeutic rehab program with the following goals: 1. Physical Therapy will see the patient and work on her functional transfer training, ambulation training with a walker. 2. Occupational Therapy will see the patient and work on her activities of daily living including toileting and toilet transfers. 3. Heparin for DVT prophylaxis. 4. Adequate analgesia. 5. Her bowels will be regulated. 6. litigation services manager will be closely involved to make sure that any services and equipment that the patient requires are in place prior to discharge. 7. For her acute blood loss anemia, we will monitor her hemoglobin and hematocrit. 8. Home with appropriate services. ESTIMATED LENGTH OF STAY: Ten to fourteen days. [id number]/[facility] #: [id number] SORAYA
[2018-08-23] MEDS: oxyCODONE/Acetamin 5/325 MG* TAB PO PRN ×2 (19:40→23:46)
[2018-08-23] MEDS: Docusate CAP* 100 MG PO SCH (21:20)
[2018-08-23] MEDS: Heparin VIAL(*) 5000 UNITS/ML VIAL (FIVE THOUSAND) SUBCUT SCH (21:45)
[2018-08-24] MEDS: oxyCODONE/Acetamin 5/325 MG* TAB PO PRN ×3 (03:50→21:24)
[2018-08-24] MEDS: Heparin VIAL(*) 5000 UNITS/ML VIAL (FIVE THOUSAND) SUBCUT SCH ×3 (05:58→21:25)
[2018-08-24] MEDS: Docusate CAP* 100 MG PO SCH ×2 (08:53→19:20)
--- NOTE | 2018-08-24 12:31 | PMRUTEAM ---
PMRU: Team Meeting Current Status: Nursing: Current Status Skin Deviations [L hip] Incision Skin Deviations [L AC] Bruise Skin Deviation Description [L drsgs in place hip] Bladder Current Status Using bedpan while in bed and commode when OOB Bowel Current Status Using bedpan while in bed and commode when OOB Nutrition Current Status 50% of most meals Medication Current Status Pain meds given Physical Therapy: Current Status Bed Mobility Assistance Total Assist,2 or More Person Assist Transfer Mobility Assistance Total Assist,2 or More Person Assist Transfer/Bed Mobility EZ Stand Recommended Devices Ambulation Assistance Unable Ambulation Assistive Devices Rolling Walker Stairs Assistance Not Tested Curb Unable Rec Therapy: Current Status Summary of Assessment and Attempted to meet with patient to introduce self Clinical Impression and RT services. Patient was asleep in her room, was given time to rest and will attempt to complete RT assessment on 08/24. Social Work: Current Status Discharge Plan return home with home care svs and family support Potential for Family Training TBD (pt lives alone) Anticipated Discharge Home Destination Discharge With home care svs and family support OCCUPATIONAL THERAPY: Min assist UB dressing, Total assist LB dressing, total assist bathing, EZ stand toilet transfers. Goals: Physical Therapy: Initial Goals Bed Mobility Assistance Independent Transfer Mobility Assistance Independent Transfer/Bed Mobility Rolling Walker Recommended Devices Ambulation Independent Ambulation Recommended Devices Rolling Walker Ambulation Distance 150 Stairs Assistance Independent Stair Recommended Devices Two Rails Number of Stairs 5 Home Exercise Program Independent Assistance Nursing: Goals Bladder Goal Independent Bowel Goal Independent Nutrition Goal 100% of all meals Medication Goal Independent with administration Social Work: Goals Discharge Plan return home with home care svs and family support Potential for Family Training TBD (pt lives alone) Anticipated Discharge Home Destination Discharge With home care svs and family support Medicine Note: Length of Stay: 3 1/2 weeks Anticipated Discharge Destination: Home Tentative Discharge Date: 09/17/18 Discharged to: Home
--- NOTE | 2018-08-24 19:18 | PN ---
Progress Note Date of Service: 08/24/18 Note: HIRO WEN was visited. Therapy notes read and reviewed. She was discussed in interdisciplinary team rounds. She has a quijano catheter placed just prior to her transfer due to an inability to void. Will start quijano clamping in a day or two. She appears dehydrated and will order a liter of D5NS. She has CKD as well as anemia. Will monitor. I will start her on a PPI. Her BP a little high Current Medications: Active Medications Generic Name Dose Route Start Last Admin Trade Name Freq PRN Reason Stop Dose Admin Acetaminophen 650 mg 08/23/18 15:40 Tylenol Tab* PO Q6H PRN FEVER/PAIN Calcium Carbonate 500 mg 08/24/18 18:34 Tums* PO Q4H PRN DYSPEPSIA Docusate Sodium 100 mg 08/23/18 21:00 08/24/18 08:53 Colace Cap* PO 100 mg BID BRETT Administration Heparin Sodium (Porcine) 5,000 units 08/23/18 22:00 08/24/18 14:18 Heparin Vial(*) SUBCUT 5,000 units Q8HR BRETT Administration Dextrose/Sodium Chloride 1,000 mls @ 75 mls/hr 08/24/18 19:00 D5ns 0.9% 1000 Ml Bag* IV 08/26/18 08:19 PER RATE BRETT Magnesium Hydroxide 30 ml 08/23/18 15:40 Milk Of Magnesia Liq* PO Q6H PRN CONSTIPATION Oxycodone/Acetaminophen 1 tab 08/23/18 15:48 08/24/18 08:53 Percocet 5/325 Tab* PO 1 tab Q4H PRN Administration PAIN - MODERATE TO SEVERE Senna 2 tab 08/23/18 15:40 Senokot Tab* PO BEDTIME PRN CONSTIPATION Vital Signs: Vital Signs Temp Pulse Resp BP Pulse Ox 98.2 F 113 18 159/38 99 08/24/18 16:28 08/24/18 16:28 08/24/18 16:28 08/24/18 16:28 08/24/18 18:38 Exam: GENERAL: No distress LUNGS: Clear bilaterally HEART: Regular rhythm ABDOMEN: Soft +BS EXTREMITIES: Wound on LLE C/D/I NEUROLOGIC: A & O. Moves all 4 extremities. Normal sensation. Left leg weak, right leg has some weakness Assessment/Plan: 1. Left hip Fracture: WBAT. PT/OT. 2. Anemia: Check labs in am. Add PPI 3. CKD: Labs in am. 4. Urinary Retention: Quijano. Will Begin quijano clamping 5. Dehydration: IV Fluids 6. DVT Prophylaxis: Heparin S/Q 7. Advanced Directives: Full code. Daughter is HCP 8. Elevated BP: may need a medicine such as Lopressor. 08/24/18 19:19
[2018-08-24] MEDS: Senna TAB PO PRN (19:20)
[2018-08-24] MEDS: Calcium Carbonate CHEW TAB* 500 MG (TUMS) PO PRN ×2 (19:20→23:56)
[2018-08-24] MEDS: D5NS 0.9% 1000 ML BAG* 1,000 ML IV SCH (19:58)
[2018-08-25] MEDS: oxyCODONE/Acetamin 5/325 MG* TAB PO PRN ×3 (02:00→21:01)
[2018-08-25 04:42] LABS: Hematocrit 23 % (35-47); Hemoglobin 7.7 g/dl (12.0-16.0); Mean Corpuscular HGB Conc 33 g/dl (31-36); Mean Corpuscular Hemoglobin 31 pg (27-31); Mean Corpuscular Volume 93 fL (80-97); Mean Platelet Volume 7.2 fL (7.4-10.4); Platelet Count 261 10^3/ul (150-450); Red Blood Count 2.51 10^6/ul (4.00-5.40); Red Cell Distribution Width 15 % (10.5-15)
[2018-08-25 04:58] LABS: Albumin 2.4 g/dL (3.2-5.2); BUN/Creatinine Ratio 28.8 (8-20); Calcium 7.4 mg/dL (8.6-10.3); EGFR African American 43.5 (>60); EGFR Non-African American 35.9 (>60); Globulin 2.4 g/dL (2-4); Potassium 4.5 mmol/L (3.5-5.0); Total Bilirubin 0.5 mg/dL (0.2-1.0); Total Protein 4.8 g/dL (6.4-8.9)
[2018-08-25 05:00] LABS: ABS Basophils 0.1 10^3/ul (0-0.2); ABS Eosinophils 0.4 10^3/ul (0-0.6); ABS Lymphocytes 1.3 10^3/ul (1.0-4.8); ABS Monocytes 1.2 10^3/ul (0-0.8); ABS Nucleated RBC 0 10^3/ul; Eosinophil % 3.9 %; Lymphocyte % 13.4 %; Nucleated Red Blood Cells % 0.1
[2018-08-25] MEDS: Calcium Carbonate CHEW TAB* 500 MG (TUMS) PO PRN ×3 (05:00→17:57)
[2018-08-25 05:02] LABS: Polychromasia 2+
[2018-08-25] MEDS: Heparin VIAL(*) 5000 UNITS/ML VIAL (FIVE THOUSAND) SUBCUT SCH ×3 (06:00→20:59)
[2018-08-25] MEDS: Docusate CAP* 100 MG PO SCH ×2 (08:48→20:59)
[2018-08-25] MEDS: Pantoprazole TAB * 40 MG TAB PO SCH (08:48)
[2018-08-25] MEDS: D5NS 0.9% 1000 ML BAG* 1,000 ML IV SCH (17:58)
--- NOTE | 2018-08-25 18:07 | PN ---
Progress Note Date of Service: 08/25/18 Note: HIRO WEN was visited. Therapy notes read and reviewed. She received 1 liter of IV fluids before her IV line infiltrated. Will get other liter today. Otherwise did a little better in physical therapy. Current Medications: Active Medications Generic Name Dose Route Start Last Admin Trade Name Freq PRN Reason Stop Dose Admin Acetaminophen 650 mg 08/23/18 15:40 Tylenol Tab* PO Q6H PRN FEVER/PAIN Calcium Carbonate 500 mg 08/24/18 18:34 08/25/18 14:18 Tums* PO 500 mg Q4H PRN Administration DYSPEPSIA Docusate Sodium 100 mg 08/23/18 21:00 08/25/18 08:48 Colace Cap* PO 100 mg BID BRETT Administration Heparin Sodium (Porcine) 5,000 units 08/23/18 22:00 08/25/18 14:19 Heparin Vial(*) SUBCUT 5,000 units Q8HR BRETT Administration Dextrose/Sodium Chloride 1,000 mls @ 75 mls/hr 08/24/18 19:00 08/24/18 19:58 D5ns 0.9% 1000 Ml Bag* IV 08/26/18 08:19 75 mls/hr PER RATE BRETT Administration Magnesium Hydroxide 30 ml 08/23/18 15:40 08/25/18 17:14 Milk Of Magnesia Liq* PO 30 ml Q6H PRN Administration CONSTIPATION Oxycodone/Acetaminophen 1 tab 08/23/18 15:48 08/25/18 06:00 Percocet 5/325 Tab* PO 1 tab Q4H PRN Administration PAIN - MODERATE TO SEVERE Pantoprazole Sodium 40 mg 08/25/18 09:00 08/25/18 08:48 Protonix Tab* PO 40 mg DAILY BRETT Administration Senna 2 tab 08/23/18 15:40 08/24/18 19:20 Senokot Tab* PO 2 tab BEDTIME PRN Administration CONSTIPATION Vital Signs: Vital Signs Temp Pulse Resp BP Pulse Ox 99.0 F 104 16 181/44 97 08/25/18 17:02 08/25/18 17:02 08/25/18 17:05 08/25/18 17:02 08/25/18 17:05 Lab Results: Laboratory Results - last 24 hr 08/25/18 08/25/18 04:32 04:32 WBC 10.0 RBC 2.51 L Hgb 7.7 L Hct 23 L MCV 93 MCH 31 MCHC 33 RDW 15 Plt Count 261 MPV 7.2 L Neut % (Auto) 70.0 Lymph % (Auto) 13.4 [place] % (Auto) 12.0 Eos % (Auto) 3.9 Baso % (Auto) 0.7 Absolute Neuts (auto) 7.0 Absolute Lymphs (auto) 1.3 Absolute Monos (auto) 1.2 H Absolute Eos (auto) 0.4 Absolute Basos (auto) 0.1 Absolute Nucleated RBC 0 Nucleated RBC % 0.1 Polychromasia 2+ Sodium 135 Potassium 4.5 Chloride 106 Carbon Dioxide 25 Anion Gap 4 BUN 40 H Creatinine 1.39 H Est GFR ( Amer) 43.5 Est GFR (Non-Af Amer) 35.9 BUN/Creatinine Ratio 28.8 H Glucose 116 H Calcium 7.4 L Total Bilirubin 0.50 AST 44 H ALT 9 Alkaline Phosphatase 64 Total Protein 4.8 L Albumin 2.4 L Globulin 2.4 Albumin/Globulin Ratio 1.0 Exam: GENERAL: No distress LUNGS: Clear bilaterally HEART: Regular rhythm ABDOMEN: Soft +BS EXTREMITIES: Wound on LLE C/D/I NEUROLOGIC: A & O. Moves all 4 extremities. Normal sensation. Left leg weak, right leg has some weakness Assessment/Plan: 1. Left hip Fracture: WBAT. PT/OT. 2. Anemia: Hb 7.7, Hct 23, will follow 3. CKD: Cr 1.39 4. Urinary Retention: Quijano. Will Begin quijano clamping Thursday 5. Dehydration: IV Fluids 6. DVT Prophylaxis: Heparin S/Q 7. Advanced Directives: Full code. Daughter is HCP 8. Elevated BP: may need a medicine such as Lopressor. 08/25/18 18:08 08/25/18 18:08
[2018-08-25] MEDS ORDERED: Polyethylene Glycol 3350* 17 GM PACKET PO PRN (20:57)
[2018-08-25] MEDS: Senna TAB PO PRN (20:59)
[2018-08-26] MEDS: Heparin VIAL(*) 5000 UNITS/ML VIAL (FIVE THOUSAND) SUBCUT SCH ×3 (05:56→21:51)
[2018-08-26] MEDS: Pantoprazole TAB * 40 MG TAB PO SCH (08:33)
[2018-08-26] MEDS: Docusate CAP* 100 MG PO SCH ×2 (08:33→20:11)
[2018-08-26] MEDS: oxyCODONE/Acetamin 5/325 MG* TAB PO PRN ×2 (08:33→16:09)
--- NOTE | 2018-08-26 19:52 | PN ---
Progress Note Date of Service: 08/26/18 Note: HIRO WEN was visited. Therapy notes read and reviewed. She did not get the full 2 liters of IV fluids. Her BP remains high and her HR is high as well. Will try low dose Lopressor. Current Medications: Active Medications Generic Name Dose Route Start Last Admin Trade Name Freq PRN Reason Stop Dose Admin Acetaminophen 650 mg 08/23/18 15:40 Tylenol Tab* PO Q6H PRN FEVER/PAIN Calcium Carbonate 500 mg 08/24/18 18:34 08/25/18 17:57 Tums* PO 500 mg Q4H PRN Administration DYSPEPSIA Docusate Sodium 100 mg 08/23/18 21:00 08/26/18 08:33 Colace Cap* PO 100 mg BID BRETT Administration Heparin Sodium (Porcine) 5,000 units 08/23/18 22:00 08/26/18 16:09 Heparin Vial(*) SUBCUT 5,000 units Q8HR BRETT Administration Magnesium Hydroxide 30 ml 08/23/18 15:40 08/25/18 17:14 Milk Of Magnesia Liq* PO 30 ml Q6H PRN Administration CONSTIPATION Metoprolol Tartrate 12.5 mg 08/27/18 09:00 Lopressor Tab* PO Q12HR BRETT Oxycodone/Acetaminophen 1 tab 08/23/18 15:48 08/26/18 16:09 Percocet 5/325 Tab* PO 1 tab Q4H PRN Administration PAIN - MODERATE TO SEVERE Pantoprazole Sodium 40 mg 08/25/18 09:00 08/26/18 08:33 Protonix Tab* PO 40 mg DAILY BRETT Administration Polyethylene Glycol/Electrolytes 17 gm 08/25/18 20:57 Miralax* PO DAILY PRN CONSTIPATION Senna 2 tab 08/23/18 15:40 08/25/18 20:59 Senokot Tab* PO 2 tab BEDTIME PRN Administration CONSTIPATION Vital Signs: Vital Signs Temp Pulse Resp BP Pulse Ox 98.2 F 97 16 168/50 98 08/26/18 05:34 08/26/18 05:40 08/26/18 18:44 08/26/18 05:45 08/26/18 05:34 Exam: GENERAL: No distress LUNGS: Clear bilaterally HEART: Regular rhythm ABDOMEN: Soft +BS EXTREMITIES: Wound on LLE C/D/I NEUROLOGIC: A & O. Moves all 4 extremities. Normal sensation. Left leg weak, right leg has some weakness Assessment/Plan: 1. Left hip Fracture: WBAT. PT/OT. 2. Anemia: Hb 7.7, Hct 23, will follow, check CBC in am. 3. CKD: Cr 1.39 4. Urinary Retention: Quijano. Will Begin quijano clamping Thursday 5. Dehydration: IV Fluids 6. DVT Prophylaxis: Heparin S/Q 7. Advanced Directives: Full code. Son is HCP 8. Elevated BP: Will start Lopressor. 08/26/18 19:52
[2018-08-26] MEDS: Calcium Carbonate CHEW TAB* 500 MG (TUMS) PO PRN (20:11)
[2018-08-27] MEDS: Heparin VIAL(*) 5000 UNITS/ML VIAL (FIVE THOUSAND) SUBCUT SCH ×3 (04:57→21:06)
[2018-08-27 05:18] LABS: Hematocrit 24 % (35-47); Mean Corpuscular HGB Conc 34 g/dl (31-36); Mean Corpuscular Hemoglobin 32 pg (27-31); Mean Corpuscular Volume 94 fL (80-97); Mean Platelet Volume 7.2 fL (7.4-10.4); Platelet Count 335 10^3/ul (150-450); Red Blood Count 2.52 10^6/ul (4.00-5.40); Red Cell Distribution Width 16 % (10.5-15); White Blood Count 13.4 10^3/ul (3.5-10.8)
[2018-08-27 05:49] LABS: ABS Basophils 0.1 10^3/ul (0-0.2); ABS Eosinophils 0.5 10^3/ul (0-0.6); ABS Lymphocytes 1.6 10^3/ul (1.0-4.8); ABS Monocytes 1.6 10^3/ul (0-0.8); ABS Neutrophils 9.7 10^3/ul (1.5-7.7); ABS Nucleated RBC 0 10^3/ul; Eosinophil % 3.9 %; Lymphocyte % 11.7 %; Nucleated Red Blood Cells % 0.1
[2018-08-27] MEDS: Pantoprazole TAB * 40 MG TAB PO SCH (08:23)
[2018-08-27] MEDS: Docusate CAP* 100 MG PO SCH ×2 (08:23→21:06)
[2018-08-27] MEDS: oxyCODONE/Acetamin 5/325 MG* TAB PO PRN ×3 (08:23→21:04)
[2018-08-27] MEDS: Metoprolol Tartrate TAB* 25 MG PO SCH ×2 (08:23→21:02)
[2018-08-27] MEDS: Calcium Carbonate CHEW TAB* 500 MG (TUMS) PO PRN ×2 (08:27→17:48)
--- NOTE | 2018-08-27 18:58 | PN ---
Progress Note Date of Service: 08/27/18 Note: HIRO WEN was visited. Therapy notes read and reviewed. Her Hb/Hct is stable. She has an elevated WBC. Will check a U/A. Started Metoprolol and seemed to tolerate it. Current Medications: Active Medications Generic Name Dose Route Start Last Admin Trade Name Freq PRN Reason Stop Dose Admin Acetaminophen 650 mg 08/23/18 15:40 Tylenol Tab* PO Q6H PRN FEVER/PAIN Calcium Carbonate 500 mg 08/24/18 18:34 08/27/18 17:48 Tums* PO 500 mg Q4H PRN Administration DYSPEPSIA Docusate Sodium 100 mg 08/23/18 21:00 08/27/18 08:23 Colace Cap* PO 100 mg BID BRETT Administration Heparin Sodium (Porcine) 5,000 units 08/23/18 22:00 08/27/18 13:09 Heparin Vial(*) SUBCUT 5,000 units Q8HR BRETT Administration Magnesium Hydroxide 30 ml 08/23/18 15:40 08/25/18 17:14 Milk Of Magnesia Liq* PO 30 ml Q6H PRN Administration CONSTIPATION Metoprolol Tartrate 12.5 mg 08/27/18 09:00 08/27/18 08:23 Lopressor Tab* PO 12.5 mg Q12HR BRETT Administration Oxycodone/Acetaminophen 1 tab 08/23/18 15:48 08/27/18 13:09 Percocet 5/325 Tab* PO 1 tab Q4H PRN Administration PAIN - MODERATE TO SEVERE Pantoprazole Sodium 40 mg 08/25/18 09:00 08/27/18 08:23 Protonix Tab* PO 40 mg DAILY BRETT Administration Polyethylene Glycol/Electrolytes 17 gm 08/25/18 20:57 Miralax* PO DAILY PRN CONSTIPATION Senna 2 tab 08/23/18 15:40 08/25/18 20:59 Senokot Tab* PO 2 tab BEDTIME PRN Administration CONSTIPATION Vital Signs: Vital Signs Temp Pulse Resp BP Pulse Ox 98.2 F 103 22 161/39 100 08/27/18 18:27 08/27/18 18:27 08/27/18 18:27 08/27/18 18:27 08/27/18 18:27 Lab Results: Laboratory Results - last 24 hr 08/27/18 04:44 WBC 13.4 H RBC 2.52 L Hgb 8.0 L Hct 24 L MCV 94 MCH 32 H MCHC 34 RDW 16 H Plt Count 335 MPV 7.2 L Neut % (Auto) 72.1 Lymph % (Auto) 11.7 [place] % (Auto) 11.9 Eos % (Auto) 3.9 Baso % (Auto) 0.4 Absolute Neuts (auto) 9.7 H Absolute Lymphs (auto) 1.6 Absolute Monos (auto) 1.6 H Absolute Eos (auto) 0.5 Absolute Basos (auto) 0.1 Absolute Nucleated RBC 0 Nucleated RBC % 0.1 Exam: GENERAL: No distress LUNGS: Clear bilaterally HEART: Regular rhythm ABDOMEN: Soft +BS EXTREMITIES: Wound on LLE C/D/I NEUROLOGIC: A & O. Moves all 4 extremities. Normal sensation. Left leg weak, right leg has some weakness Assessment/Plan: 1. Left hip Fracture: WBAT. PT/OT. 2. Anemia: Hb 8.0, Hct 24, will follow. 3. CKD: Cr 1.39 4. Urinary Retention: Quijano. quijano clamping 5. Dehydration: IV Fluids 6. DVT Prophylaxis: Heparin S/Q 7. Advanced Directives: Full code. Son is HCP 8. Elevated BP: started Lopressor. 9. Elevated WBC: check UA 08/27/18 18:58 08/27/18 18:59
[2018-08-27 22:26] LABS: Urine Appearance Cloudy; Urine Bacteria 1+ (Absent); Urine Bilirubin Negative (Negative); Urine Blood 2+ (Negative); Urine Color Yellow; Urine Glucose Negative (Negative); Urine Ketones Negative (Negative); Urine Nitrite Positive (Negative); Urine Protein Negative (Negative); Urine Red Blood Cell 2+(6-10/hpf) (Absent); Urine Specific Gravity 1.012 (1.010-1.030); Urine Squamous Epithelial Cell Present (Absent); Urine Urobilinogen Negative (Negative); Urine White Blood Cell 3+(>20/hpf) (Absent)
[2018-08-28] MEDS: Heparin VIAL(*) 5000 UNITS/ML VIAL (FIVE THOUSAND) SUBCUT SCH ×3 (05:35→21:05)
[2018-08-28] MEDS: Docusate CAP* 100 MG PO SCH ×2 (07:57→21:04)
[2018-08-28] MEDS: Metoprolol Tartrate TAB* 25 MG PO SCH ×2 (08:03→21:03)
[2018-08-28] MEDS: Pantoprazole TAB * 40 MG TAB PO SCH (08:04)
[2018-08-28] MEDS: Acetaminophen TAB* 325 MG PO PRN (08:04)
[2018-08-28] MEDS ORDERED: Calcium Carbonate CHEW TAB* 500 MG (TUMS) PO PRN (16:00)
[2018-08-28] MEDS ORDERED: CALCIUM CARBONATE PO PRN (16:00)
--- NOTE | 2018-08-28 16:47 | PN ---
Progress Note Date of Service: 08/28/18 Note: HIRO WEN was visited. Therapy notes read and reviewed. Her UA looks suspicious for a UTI. Will start Amoxicillin and await sensitivities. Quijano should come out tomorrow Current Medications: Active Medications Generic Name Dose Route Start Last Admin Trade Name Freq PRN Reason Stop Dose Admin Acetaminophen 650 mg 08/23/18 15:40 08/28/18 08:04 Tylenol Tab* PO 650 mg Q6H PRN Administration FEVER/PAIN Amoxicillin 250 mg 08/28/18 21:00 Amoxicillin Po (*) PO TID BRETT Docusate Sodium 100 mg 08/23/18 21:00 08/28/18 07:57 Colace Cap* PO Not Given BID BRETT Heparin Sodium (Porcine) 5,000 units 08/23/18 22:00 08/28/18 14:19 Heparin Vial(*) SUBCUT 5,000 units Q8HR BRETT Administration Magnesium Hydroxide 30 ml 08/23/18 15:40 08/25/18 17:14 Milk Of Magnesia Liq* PO 30 ml Q6H PRN Administration CONSTIPATION Metoprolol Tartrate 12.5 mg 08/27/18 09:00 08/28/18 08:03 Lopressor Tab* PO 12.5 mg Q12HR BRETT Administration Pto*Calcium 1 admin 08/28/18 16:00 Carbonate Chewy PO Bites Q4H PRN DYSPEPSIA Oxycodone/Acetaminophen 1 tab 08/23/18 15:48 08/27/18 21:04 Percocet 5/325 Tab* PO 1 tab Q4H PRN Administration PAIN - MODERATE TO SEVERE Pantoprazole Sodium 40 mg 08/25/18 09:00 08/28/18 08:04 Protonix Tab* PO 40 mg DAILY BRETT Administration Polyethylene Glycol/Electrolytes 17 gm 08/25/18 20:57 Miralax* PO DAILY PRN CONSTIPATION Senna 2 tab 08/23/18 15:40 08/25/18 20:59 Senokot Tab* PO 2 tab BEDTIME PRN Administration CONSTIPATION Vital Signs: Vital Signs Temp Pulse Resp BP Pulse Ox 98.0 F 88 18 145/50 97 08/28/18 05:37 08/28/18 05:37 08/28/18 05:37 08/28/18 05:37 08/28/18 05:37 Lab Results: Laboratory Results - last 24 hr 08/27/18 21:45 Urine Color Yellow Urine Appearance Cloudy Urine pH 5.0 Ur Specific [place] 1.012 Urine Protein Negative Urine Ketones Negative Urine Blood 2+ A Urine Nitrate Positive A Urine Bilirubin Negative Urine Urobilinogen Negative Ur Leukocyte Esterase 3+ A Urine WBC (Auto) 3+(>20/hpf) A Urine RBC (Auto) 2+(6-10/hpf) A Ur Squamous Epith Cells Present A Urine Bacteria 1+ A Urine Glucose Negative Exam: GENERAL: No distress LUNGS: Clear bilaterally HEART: Regular rhythm ABDOMEN: Soft +BS EXTREMITIES: Wound on LLE C/D/I NEUROLOGIC: A & O. Moves all 4 extremities. Normal sensation. Left leg weak, right leg has some weakness Assessment/Plan: 1. Left hip Fracture: WBAT. PT/OT. 2. Anemia: Hb 8.0, Hct 24, will follow. 3. CKD: Cr 1.39 4. Urinary Retention: Quijano. quijano clamping 5. Dehydration: IV Fluids 6. DVT Prophylaxis: Heparin S/Q 7. Advanced Directives: Full code. Son is HCP 8. Elevated BP: started Lopressor. 9. Urinary tract infection: Amox 250 TID. Await sensitivities 08/28/18 16:48
[2018-08-28] MEDS: oxyCODONE/Acetamin 5/325 MG* TAB PO PRN (18:47)
[2018-08-28] MEDS: Amoxicillin PO (*) 250 MG CAP PO SCH (21:03)
[2018-08-29] MEDS: oxyCODONE/Acetamin 5/325 MG* TAB PO PRN ×2 (00:23→20:09)
[2018-08-29] MEDS: Heparin VIAL(*) 5000 UNITS/ML VIAL (FIVE THOUSAND) SUBCUT SCH ×3 (05:51→21:57)
[2018-08-29] MEDS: Metoprolol Tartrate TAB* 25 MG PO SCH ×2 (08:59→20:05)
[2018-08-29] MEDS: Amoxicillin PO (*) 250 MG CAP PO SCH ×2 (08:59→17:07)
[2018-08-29] MEDS: Pantoprazole TAB * 40 MG TAB PO SCH (08:59)
[2018-08-29] MEDS: Docusate CAP* 100 MG PO SCH ×2 (09:00→20:05)
[2018-08-29] MEDS: Acetaminophen TAB* 325 MG PO PRN (09:19)
[2018-08-29] MEDS ORDERED: Ciprofloxacin TAB* 500 MG PO SCH (15:00)
[2018-08-29] MEDS: Ciprofloxacin TAB* 500 MG PO SCH (15:10)
--- NOTE | 2018-08-29 15:40 | PN ---
Progress Note Date of Service: 08/29/18 Note: HIRO WEN was visited. Nursing notes read and reviewed. Her urine culture grew out Pseudomonas spp. Will d/c Amox and start Cipro, renally dosing Current Medications: Active Medications Generic Name Dose Route Start Last Admin Trade Name Freq PRN Reason Stop Dose Admin Acetaminophen 650 mg 08/23/18 15:40 08/29/18 09:19 Tylenol Tab* PO 650 mg Q6H PRN Administration FEVER/PAIN Ciprofloxacin 500 mg 08/29/18 15:00 Cipro Tab* PO 09/02/18 15:01 DAILY@1500 BRETT Docusate Sodium 100 mg 08/23/18 21:00 08/29/18 09:00 Colace Cap* PO 100 mg BID BRETT Administration Heparin Sodium (Porcine) 5,000 units 08/23/18 22:00 08/29/18 14:34 Heparin Vial(*) SUBCUT 5,000 units Q8HR BRETT Administration Magnesium Hydroxide 30 ml 08/23/18 15:40 08/25/18 17:14 Milk Of Magnesia Liq* PO 30 ml Q6H PRN Administration CONSTIPATION Metoprolol Tartrate 12.5 mg 08/27/18 09:00 08/29/18 08:59 Lopressor Tab* PO 12.5 mg Q12HR BRETT Administration Pto*Calcium 1 admin 08/28/18 16:00 08/28/18 18:49 Carbonate Chewy PO 1 admin Bites Q4H PRN Administration DYSPEPSIA Oxycodone/Acetaminophen 1 tab 08/23/18 15:48 08/29/18 00:23 Percocet 5/325 Tab* PO 1 tab Q4H PRN Administration PAIN - MODERATE TO SEVERE Pantoprazole Sodium 40 mg 08/25/18 09:00 08/29/18 08:59 Protonix Tab* PO 40 mg DAILY BRETT Administration Polyethylene Glycol/Electrolytes 17 gm 08/25/18 20:57 Miralax* PO DAILY PRN CONSTIPATION Senna 2 tab 08/23/18 15:40 08/25/18 20:59 Senokot Tab* PO 2 tab BEDTIME PRN Administration CONSTIPATION Vital Signs: Vital Signs Temp Pulse Resp BP Pulse Ox 98.1 F 91 16 145/41 97 08/29/18 04:34 08/29/18 04:34 08/29/18 08:00 08/29/18 04:34 08/29/18 08:00 Exam: GENERAL: No distress LUNGS: Clear bilaterally HEART: Regular rhythm ABDOMEN: Soft +BS EXTREMITIES: Wound on LLE C/D/I NEUROLOGIC: A & O. Moves all 4 extremities. Normal sensation. Left leg weak, right leg has some weakness Assessment/Plan: 1. Left hip Fracture: WBAT. PT/OT. 2. Anemia: Hb 8.0, Hct 24, will follow. 3. CKD: Cr 1.39 4. Urinary Retention: Quijano. quijano clamping, d/c quijano in am 5. DVT Prophylaxis: Heparin S/Q 6. Advanced Directives: Full code. Son is HCP 7. Elevated BP: started Lopressor. 8. Urinary tract infection: >100K Pseudomonas Aeruginosa. Cipro 500 Q24H. Await sensitivities 08/29/18 15:40 08/29/18 15:42
[2018-08-30] MEDS: oxyCODONE/Acetamin 5/325 MG* TAB PO PRN (02:35)
[2018-08-30] MEDS: Heparin VIAL(*) 5000 UNITS/ML VIAL (FIVE THOUSAND) SUBCUT SCH ×3 (06:01→21:49)
[2018-08-30] MEDS: Acetaminophen TAB* 325 MG PO PRN ×2 (09:00→19:13)
[2018-08-30] MEDS: Metoprolol Tartrate TAB* 25 MG PO SCH ×2 (09:01→21:48)
[2018-08-30] MEDS: Pantoprazole TAB * 40 MG TAB PO SCH (09:01)
[2018-08-30] MEDS: Docusate CAP* 100 MG PO SCH ×2 (09:03→21:39)
[2018-08-30] MEDS: Ciprofloxacin TAB* 500 MG PO SCH (15:24)
--- NOTE | 2018-08-30 18:11 | PN ---
Progress Note Date of Service: 08/30/18 Note: HIRO WEN was visited. Therapy notes read and reviewed. Her quijano catheter was removed and she was able to void. She remains in good spirits. Current Medications: Active Medications Generic Name Dose Route Start Last Admin Trade Name Freq PRN Reason Stop Dose Admin Acetaminophen 650 mg 08/23/18 15:40 08/30/18 09:00 Tylenol Tab* PO 650 mg Q6H PRN Administration FEVER/PAIN Ciprofloxacin 500 mg 08/29/18 15:00 08/30/18 15:24 Cipro Tab* PO 09/02/18 15:01 500 mg DAILY@1500 BRETT Administration Docusate Sodium 100 mg 08/23/18 21:00 08/30/18 09:03 Colace Cap* PO 100 mg BID BRETT Administration Heparin Sodium (Porcine) 5,000 units 08/23/18 22:00 08/30/18 14:32 Heparin Vial(*) SUBCUT 5,000 units Q8HR BRETT Administration Magnesium Hydroxide 30 ml 08/23/18 15:40 08/25/18 17:14 Milk Of Magnesia Liq* PO 30 ml Q6H PRN Administration CONSTIPATION Metoprolol Tartrate 12.5 mg 08/27/18 09:00 08/30/18 09:01 Lopressor Tab* PO 12.5 mg Q12HR BRETT Administration Pto*Calcium 1 admin 08/28/18 16:00 08/28/18 18:49 Carbonate Chewy PO 1 admin Bites Q4H PRN Administration DYSPEPSIA Oxycodone/Acetaminophen 1 tab 08/23/18 15:48 08/30/18 02:35 Percocet 5/325 Tab* PO 1 tab Q4H PRN Administration PAIN - MODERATE TO SEVERE Pantoprazole Sodium 40 mg 08/25/18 09:00 08/30/18 09:01 Protonix Tab* PO 40 mg DAILY BRETT Administration Polyethylene Glycol/Electrolytes 17 gm 08/25/18 20:57 Miralax* PO DAILY PRN CONSTIPATION Senna 2 tab 08/23/18 15:40 08/25/18 20:59 Senokot Tab* PO 2 tab BEDTIME PRN Administration CONSTIPATION Vital Signs: Vital Signs Temp Pulse Resp BP Pulse Ox 98.1 F 88 20 145/41 100 08/30/18 15:10 08/30/18 15:10 08/30/18 15:10 08/30/18 15:10 08/30/18 15:10 Exam: GENERAL: No distress LUNGS: Clear bilaterally HEART: Regular rhythm ABDOMEN: Soft +BS EXTREMITIES: Wound on LLE C/D/I NEUROLOGIC: A & O. Moves all 4 extremities. Normal sensation. Left leg weak, right leg has some weakness Assessment/Plan: 1. Left hip Fracture: WBAT. PT/OT. 2. Anemia: Hb 8.0, Hct 24, will follow. 3. CKD: Cr 1.39 4. Urinary Retention: [place] d/c this am; has voided 5. DVT Prophylaxis: Heparin S/Q 6. Advanced Directives: Full code. Son is HCP 7. Elevated BP: started Lopressor. 8. Urinary tract infection: >100K Pseudomonas Aeruginosa sensitive to Cipro. Cipro 500 Q24H, day 2/5. 08/30/18 18:11 08/30/18 18:12
[2018-08-31] MEDS: Heparin VIAL(*) 5000 UNITS/ML VIAL (FIVE THOUSAND) SUBCUT SCH ×3 (05:07→22:48)
[2018-08-31] MEDS: oxyCODONE/Acetamin 5/325 MG* TAB PO PRN ×2 (05:19→20:11)
[2018-08-31] MEDS: Docusate CAP* 100 MG PO SCH ×2 (08:04→20:11)
[2018-08-31] MEDS: Pantoprazole TAB * 40 MG TAB PO SCH (08:04)
[2018-08-31] MEDS: Metoprolol Tartrate TAB* 25 MG PO SCH ×2 (08:04→20:09)
--- NOTE | 2018-08-31 13:01 | PMRUTEAM ---
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 dressing to hip] distal inc Bladder Current Status Using bedpan while in bed and commode when OOB Bowel Current Status Using bedpan while in bed and commode when OOB Nutrition Current Status 50% of most meals Medication Current Status Pain meds given Physical Therapy: Current Status Bed Mobility Assistance Mod Assist Transfer Mobility Assistance Contact Guard Assist,Min Assist Transfer/Bed Mobility Rolling Walker Recommended Devices Ambulation Assistance Min Assist Ambulation Assistive Devices Rolling Walker Number of Feet Patient 8 Ambulated Stairs Assistance Mod Assist Stairs Recommended Devices Two Rails Number of Stairs 3 Curb Unable Occupational Therapy: Current Status Upper Body Dressing Supervision Lower Body Dressing Mod Assist,2 Person Assist Bathing Mod Assist,2 Person Assist Toileting Total Assist,2 Person Assist Toilet Transfer Mod Assist,2 Person Assist Shower Transfer Total Assist,2 Person Assist Eating Supervision Rec Therapy: Current Status Summary of Assessment and Pt. has been completing crossword puzzles and Clinical Impression watching TV independently. Pt. is open to conversation with bright affect. Pt. initially declined RT services but stated she would like to engage as of 08/30. Exercise Instructor will follow up. Treatment Goals Pt. will continue to engage in leisure activities while on the unit. Treatment Plan Continue to provide RT services. Social Work: Current Status Discharge Plan return home with home care svs and family support Potential for Family Training pt's son is involved and attentive Anticipated Discharge Home Destination Discharge With home care svs and family support Nutrition: Current Status Monitoring Pt is alert/sharp and enthusiastic. Intake 25- 100 % - reports eating smaller amounts than "I used to ", but overall appears to be meeting needs. No issues w/constipation. Hx CKD but no indication for modification in diet. Mg elevated last admit, but likely resolved since this was after Mg supplementation due to low level. No specific nutrition intervention appears indicated but will remain involved as needed. Speech: Current Status Assessment Patient is progressing as expected. Patient required minimal to moderate cueing to answer complex printed questions, and minimal cueing to use alternating attention and short-term memoy to write out checks. Goals: Physical Therapy: Initial Goals Bed Mobility Assistance Independent Transfer Mobility Assistance Independent Transfer/Bed Mobility Rolling Walker Recommended Devices Ambulation Independent Ambulation Recommended Devices Rolling Walker Ambulation Distance 150 Stairs Assistance Independent Stair Recommended Devices One Rail Number of Stairs 5 Home Exercise Program Independent Assistance Physical Therapy: Updated Goals Transfer/Bed Mobility EZ Stand Recommended Devices Occupational Therapy: Initial Goals Goals to be Completed in (Days 3-4 weeks ) Upper Body Bathing Routine Independent Lower Body Bathing Routine Modified Independent with Upper Body Dressing Routine Independent Lower Body Dressing Routine Modified Independent with Toilet Hygeine and Clothing Modified Independent with Management Routine Toilet Transfer Routine Modified Independent with Step-In Shower Transfer Supervision/Set Up Routine Functional Transfers for ADL Modified Independent with Grooming Routine Independent Feeding Routine Independent Nursing: Goals Bladder Goal Independent Bowel Goal Independent Nutrition Goal 100% of all meals Medication Goal Independent with administration Nutrition: Goals Intervention Goals 1. Maintain adequate intake (average >50%) to support post op, maintenance of lean body mass. 2. Maintain regular bowel pattern w/o constipation or diarrhea. 3. Maintain Mg WNL. Speech: Goals Speech Goal 1 Memory Goal 1 Comments Memory Goals: Long-Term Memory Goal: Pt will use compensatory strategies to attend to, encode and retrieve 4/4 new items after delay of 30 minutes, Independently , for independence in mobility safety, ADLs and community access. Status: Progressing as expected. Short-term Memory Goal: Pt will use compensatory strategies to attend to, encode and retrieve 3/4 new items after delay of 5 minutes, given Moderate skilled instruction and cueing. Status: Progressing as expected. SPEECH PATHOLOGY TEACHER presented a check writing task, with date, payee and amount on one side, and blank checks on the other. Given minimal cueing, patient read and repeated one fact at a time to complete the first check. For the secomnd check, patient recited all three facts, but perseverated on the amount and required cueing to check her work. Speech Goal 2 Problem Solving Goals: Speech Goal 2 Comments Problem Solving Goals: Long-Term Goal: Pt will use compensatory strategies to solve moderately complex routine problems, with 100% accuracy, Independently, for personal safety and ADLs such as shopping, time and money management. Status: Progressing as expected. Short-Term Goal: Pt will use compensatory strategies to solve simple routine problems, with 80% accuracy, given Moderate skilled instruction and cueing, for personal safety and ADLs such as shopping, time and money management. Status: Progressing as expected. SPEECH PATHOLOGY TEACHER presented a printed timetable for preparing items for thanksgiving dinner, and simple to complex questions. for simple questions, patient required minimal cueing to respond correctly. For example, in answer to a question about what time something wouldbe done, patient gave the cooking time not the clock time. For complex questions, patient required moderate cueing. For example, what time t put the turkey in, to allow for scheduled baking time plus coolingnand cutting time. Social Work: Goals Discharge Plan return home with home care svs and family support Potential for Family Training pt's son is involved and attentive Anticipated Discharge Home Destination Discharge With home care svs and family support Care Plan: Care Plan ADL's - Improve/Maintain Start: 08/25/18 07:10 Freq: DAILY Status: Active Target: Protocol: Activity Type Activity Date Activity User E-Sign Co-Sign Detail Recorded Client Recorded Date Recorded By Document 08/26/18 12:47 [id number] 08/26/18 12:47 [id number] 08/26/18 12:47 PMRU Outcome: ADL's/ADL Transfers Orders/Interventions Occupational Therapy Evaluation & Treatment Communication Tool in Patient Room Patient to receive OT 5x/wk for 60-120 Therex min/day Self Care Management Group Therapy UE/LE ADL's with Assist Yes: mod I ADL Transfers with Assist Yes: mod I Toileting: Transfers,Clothing Management Yes: mod I ,Hygeine w/Assist Light Kitchen/Laundry w/Assist Yes: min A Progression Toward Outcome/Goals Progressing Outcome/Goals Met Pt performs similarly to yesterday. Still limited by forgetfulness and diffiuclty with problem solving. Cardiovascular- Improve/Maintain Start: 08/25/18 16:09 Freq: QSHIFT Status: Active Target: Protocol: Activity Type Activity Date Activity User E-Sign Co-Sign Detail Recorded Client Recorded Date Recorded By Document 08/31/18 08:10 [id number] [id number] 08/31/18 09:36 [id number] 08/31/18 08:10 PMRU Outcome: Cardiovascular Vital Signs q Shift for 48hrs Then BID Yes Daily Weight Ordered No Current Cardiovascular Outcome/Goal Maintain/ Achieve Baseline HR, BP , Perfusion Maintain/ Achieve Hemodynamic Stability Free of Abnormal Cardiac Symptoms Progression Toward Outcome/Goal Progressing Communication-Improve/Maintain Start: 08/27/18 11:58 Freq: DAILY Status: Active Target: Protocol: Activity Type Activity Date Activity User E-Sign Co-Sign Detail Recorded Client Recorded Date Recorded By Document 08/31/18 01:47 [id number] [id number] 08/31/18 01:48 [id number] 08/31/18 01:47 PMRU Outcome: Communication/Cognitive Status Outcome/Goals Use Comm Tools/ Devices Makes Needs Known Effectively Other Outcomes/Goals Memory Goals: Long-Term Memory Goal: Pt will use compensatory strategies to encode and retrieve 4/4 new items after delay of 30 minutes, Independently, for independence in mobility safety, ADLs and community access. Short-term Memory Goal: Pt will use compensatory strategies to encode and retrieve 3/4 new items after delay of 5 minutes, given Moderate skilled instruction and cueing. Problem Solving Goals: Long-Term Goal: Pt will use compensatory strategies to solve moderately complex routine problems, with 100% accuracy, Independently, for personal safety and ADLs such as shopping, time and money management. Short-Term Goal : Pt will use compensatory strategies to solve simple routine problems, with 80% accuracy, given Moderate skilled instruction and cueing, for personal safety and ADLs such as shopping, time and money management. Progression Toward Outcomes/Goals Progressing DVT Prophylaxis- Improve/Maintain Start: 08/25/18 16:09 Freq: QSHIFT Status: Active Target: Protocol: Activity Type Activity Date Activity User E-Sign Co-Sign Detail Recorded Client Recorded Date Recorded By Document 08/31/18 08:10 [id number] [id number] 08/31/18 09:36 [id number] 08/31/18 08:10 PMRU Outcome: DVT Prophylaxis Outcome/Goals Remains Free of DVT Complies with DVT Prophylaxis /Treatment Demonstrates Knowledge of DVT Prevention/ Treatment TEDS Stockings on Every AM, Off at HS Progression Toward Outcome/Goals Progressing Discharge Planning - Improve/Maintain Start: 08/25/18 16:09 Freq: DAILY Status: Active Target: Protocol: Activity Type Activity Date Activity User E-Sign Co-Sign Detail Recorded Client Recorded Date Recorded By Document 08/31/18 01:47 [id number] 08/31/18 01:47 [id number] 08/31/18 01:47 PMRU Outcome: Discharge Planning Update Patient Family No Outcome/Goals Demonstrates Understanding of Discharge Plan Education-Improve/Maintain Start: 08/25/18 16:09 Freq: QSHIFT Status: Active Target: Protocol: Activity Type Activity Date Activity User E-Sign Co-Sign Detail Recorded Client Recorded Date Recorded By Document 08/31/18 08:10 [id number] 08/31/18 09:36 [id number] 08/31/18 08:10 PMRU Outcome: Education Outcome/Goals Demonstrates Skills Encourage Questions Progression Toward Outcome/Goals Progressing /GI-Improve/Maintain Start: 08/25/18 16:09 Freq: QSHIFT Status: Active Target: Protocol: Activity Type Activity Date Activity User E-Sign Co-Sign Detail Recorded Client Recorded Date Recorded By Document 08/31/18 08:10 [id number] 08/31/18 09:36 [id number] 08/31/18 08:10 PMRU Outcome: Genitourinary/ Gastrointestinal Genitourinary- Outcome/Goals Maintain/ Achieve Urinary Continence Remain Free of Hospital- Acquired UTI Gastrointestinal-Outcome/Goals Remain Free of Emesis Prevent Constipation Laxatives as Ordered Progression Toward Outcome/Goals - Progressing Progression Toward Outcome/Goals - GI Progressing Outcome/Goals Met Comment Pt up to use commode Genitourinary-Improve/Maintain Start: 08/25/18 00:46 Freq: DAILY@08 Status: Active Target: Protocol: Activity Type Activity Date Activity User E-Sign Co-Sign Detail Recorded Client Recorded Date Recorded By Document 08/31/18 08:10 [id number] 08/31/18 09:36 [id number] 08/31/18 08:10 Outcome: Genitourinary Outcome/Goals Maintain/ Achieve Urinary Continence Remain Free of Hospital- Acquired UTI Progression Toward Outcome/Goals Progressing Infection-Improve/Maintain Start: 08/25/18 00:46 Freq: DAILY@08 Status: Active Target: Protocol: Activity Type Activity Date Activity User E-Sign Co-Sign Detail Recorded Client Recorded Date Recorded By Document 08/31/18 08:10 [id number] 08/31/18 09:36 [id number] 08/31/18 08:10 Outcome: Infection Outcome/Goals Remain Free of Infection Progression Toward Outcome/Goals Progressing Medication Administration Start: 08/25/18 16:09 Freq: QSHIFT Status: Active Target: Protocol: Activity Type Activity Date Activity User E-Sign Co-Sign Detail Recorded Client Recorded Date Recorded By Document 08/31/18 08:10 [id number] 08/31/18 09:36 [id number] 08/31/18 08:10 PMRU Outcome: Medication Administration Assess Patient Knowledge/Teach Med Yes Education for all Meds Outcome/Goals Patient Independent with Medication Administration at Home Demonstrates Understanding Progression Towards Outcome/Goals Progressing Is Patient Going Home on Lovenox? No Pain/Comfort- Improve/Maintain Start: 08/25/18 16:09 Freq: QSHIFT Status: Active Target: Protocol: Activity Type Activity Date Activity User E-Sign Co-Sign Detail Recorded Client Recorded Date Recorded By Document 08/31/18 08:10 [id number] 08/31/18 09:36 [id number] 08/31/18 08:10 PMRU Outcome: Pain/Comfort Outcome/Goals Demonstrates Knowledge and Use of Available Comfort Measures Achieves Acceptable Comfort/Pain Level as Determined by Patient/Condit Maintain Comfort Level Allowing Patient to Fully Participate in Rehab Progression Toward Outcome/Goals Progressing Outcome/Goals Met Comment Denies need at this time Safety- Improve/Maintain Start: 08/25/18 16:09 Freq: QSHIFT Status: Active Target: Protocol: Activity Type Activity Date Activity User E-Sign Co-Sign Detail Recorded Client Recorded Date Recorded By Document 08/31/18 08:10 [id number] 08/31/18 09:36 [id number] 08/31/18 08:10 PMRU Outcome: Safety Outcome/Goals Remain Free of Injury or Harm Cooperates with Safety Measures for Least Restrictive Environment Prevent Falls/ Injury Progression Toward Outcome/Goals Progressing Skin- Improve/Maintain Start: 08/25/18 16:09 Freq: QSHIFT Status: Active Target: Protocol: Activity Type Activity Date Activity User E-Sign Co-Sign Detail Recorded Client Recorded Date Recorded By Document 08/31/18 08:10 [id number] 08/31/18 09:36 [id number] 08/31/18 08:10 PMRU Outcome: Skin Skin Risk Level Medium Skin Orders Dressing Change Heels Off Bed Turn/Position q2hr While in Bed Outcome/Goals Maintain/ Improve Skin Intergrity Free from Decubitus Surgical Incisions Healing Progression Toward Outcome/Goals Progressing Medicine Note: Length of Stay: 17 days Anticipated Discharge Destination: Home Tentative Discharge Date: 09/17/18 Discharged to: Home
[2018-08-31] MEDS: Ciprofloxacin TAB* 500 MG PO SCH (15:04)
--- NOTE | 2018-08-31 18:03 | PN ---
Progress Note Date of Service: 08/31/18 Note: HIRO WEN was visited. Therapy notes read and reviewed. She was discussed in interdisciplinary team rounds. She has made progress. Some concerns about her ability to pay her bills. Current Medications: Active Medications Generic Name Dose Route Start Last Admin Trade Name Freq PRN Reason Stop Dose Admin Acetaminophen 650 mg 08/23/18 15:40 08/30/18 19:13 Tylenol Tab* PO 650 mg Q6H PRN Administration FEVER/PAIN Ciprofloxacin 500 mg 08/29/18 15:00 08/31/18 15:04 Cipro Tab* PO 09/02/18 15:01 500 mg DAILY@1500 BRETT Administration Docusate Sodium 100 mg 08/23/18 21:00 08/31/18 08:04 Colace Cap* PO 100 mg BID BRETT Administration Heparin Sodium (Porcine) 5,000 units 08/23/18 22:00 08/31/18 14:29 Heparin Vial(*) SUBCUT 5,000 units Q8HR BRETT Administration Magnesium Hydroxide 30 ml 08/23/18 15:40 08/25/18 17:14 Milk Of Magnesia Liq* PO 30 ml Q6H PRN Administration CONSTIPATION Metoprolol Tartrate 12.5 mg 08/27/18 09:00 08/31/18 08:04 Lopressor Tab* PO 12.5 mg Q12HR BRETT Administration Pto*Calcium 1 admin 08/28/18 16:00 08/28/18 18:49 Carbonate Chewy PO 1 admin Bites Q4H PRN Administration DYSPEPSIA Oxycodone/Acetaminophen 1 tab 08/23/18 15:48 08/31/18 05:19 Percocet 5/325 Tab* PO 1 tab Q4H PRN Administration PAIN - MODERATE TO SEVERE Pantoprazole Sodium 40 mg 08/25/18 09:00 08/31/18 08:04 Protonix Tab* PO 40 mg DAILY BRETT Administration Polyethylene Glycol/Electrolytes 17 gm 08/25/18 20:57 Miralax* PO DAILY PRN CONSTIPATION Senna 2 tab 08/23/18 15:40 08/25/18 20:59 Senokot Tab* PO 2 tab BEDTIME PRN Administration CONSTIPATION Vital Signs: Vital Signs Temp Pulse Resp BP Pulse Ox 98.5 F 85 18 165/40 99 08/31/18 16:34 08/31/18 16:34 08/31/18 16:34 08/31/18 16:34 08/31/18 16:34 Exam: GENERAL: No distress LUNGS: Clear bilaterally HEART: Regular rhythm ABDOMEN: Soft +BS EXTREMITIES: Wound on LLE C/D/I NEUROLOGIC: A & O. Moves all 4 extremities. Normal sensation. Left leg weak, right leg has some weakness Assessment/Plan: 1. Left hip Fracture: WBAT. PT/OT. 2. Anemia: Hb 8.0, Hct 24, will follow. 3. CKD: Cr 1.39 4. Urinary Retention: [place] d/c this am; has voided 5. DVT Prophylaxis: Heparin S/Q 6. Advanced Directives: Full code. Son is HCP 7. Elevated BP: started Lopressor. 8. Urinary tract infection: >100K Pseudomonas Aeruginosa sensitive to Cipro. Cipro 500 Q24H, day 3/5. 08/31/18 18:03
[2018-08-31] MEDS: Acetaminophen TAB* 325 MG PO PRN (22:48)
[2018-09-01] MEDS: Heparin VIAL(*) 5000 UNITS/ML VIAL (FIVE THOUSAND) SUBCUT SCH ×3 (05:11→21:44)
[2018-09-01 05:18] LABS: Hematocrit 26 % (35-47); Hemoglobin 8.3 g/dl (12.0-16.0); Mean Corpuscular HGB Conc 32 g/dl (31-36); Mean Corpuscular Hemoglobin 31 pg (27-31); Mean Corpuscular Volume 97 fL (80-97); Mean Platelet Volume 7.1 fL (7.4-10.4); Platelet Count 511 10^3/ul (150-450); Red Blood Count 2.66 10^6/ul (4.00-5.40); Red Cell Distribution Width 17 % (10.5-15)
[2018-09-01 05:50] LABS: Albumin 2.9 g/dL (3.2-5.2); Albumin/Globulin Ratio 1.1 (1-3); Calcium 8.4 mg/dL (8.6-10.3); EGFR African American 44.6 (>60); EGFR Non-African American 36.9 (>60); Globulin 2.6 g/dL (2-4); Total Bilirubin 0.3 mg/dL (0.2-1.0); Total Protein 5.5 g/dL (6.4-8.9)
[2018-09-01 05:53] LABS: Potassium 5.1 mmol/L (3.5-5.0)
[2018-09-01 06:01] LABS: ABS Basophils 0.1 10^3/ul (0-0.2); ABS Eosinophils 0.5 10^3/ul (0-0.6); ABS Lymphocytes 1.9 10^3/ul (1.0-4.8); ABS Monocytes 1.3 10^3/ul (0-0.8); ABS Neutrophils 10.3 10^3/ul (1.5-7.7); ABS Nucleated RBC 0 10^3/ul; Eosinophil % 3.3 %; Lymphocyte % 13.5 %; Nucleated Red Blood Cells % 0
[2018-09-01] MEDS: Metoprolol Tartrate TAB* 25 MG PO SCH ×2 (10:05→21:44)
[2018-09-01] MEDS: Docusate CAP* 100 MG PO SCH ×2 (10:05→21:44)
[2018-09-01] MEDS: Pantoprazole TAB * 40 MG TAB PO SCH (10:05)
[2018-09-01] MEDS: Acetaminophen TAB* 325 MG PO PRN (10:06)
[2018-09-01] MEDS: Ciprofloxacin TAB* 500 MG PO SCH (14:39)
[2018-09-01] MEDS: oxyCODONE/Acetamin 5/325 MG* TAB PO PRN (16:57)
[2018-09-01] MEDS ORDERED: Benzocaine/Menthol LOZ* 1 LOZENGE PO PRN (18:44)
--- NOTE | 2018-09-01 19:37 | PN ---
Progress Note Date of Service: 09/01/18 Note: HIRO WEN was visited. Therapy notes read and reviewed. She is finishing up her course of Cipro for her UTI. She seems to still fluctuate with her transfers. Complains of a scratchy throat Current Medications: Active Medications Generic Name Dose Route Start Last Admin Trade Name Freq PRN Reason Stop Dose Admin Acetaminophen 650 mg 08/23/18 15:40 09/01/18 10:06 Tylenol Tab* PO 650 mg Q6H PRN Administration FEVER/PAIN Ciprofloxacin 500 mg 08/29/18 15:00 09/01/18 14:39 Cipro Tab* PO 09/02/18 15:01 500 mg DAILY@1500 BRETT Administration Docusate Sodium 100 mg 08/23/18 21:00 09/01/18 10:05 Colace Cap* PO 100 mg BID BRETT Administration Heparin Sodium (Porcine) 5,000 units 08/23/18 22:00 09/01/18 14:31 Heparin Vial(*) SUBCUT 5,000 units Q8HR BRETT Administration Magnesium Hydroxide 30 ml 08/23/18 15:40 08/25/18 17:14 Milk Of Magnesia Liq* PO 30 ml Q6H PRN Administration CONSTIPATION Metoprolol Tartrate 12.5 mg 08/27/18 09:00 09/01/18 10:05 Lopressor Tab* PO 12.5 mg Q12HR BRETT Administration Pto*Calcium 1 admin 08/28/18 16:00 08/28/18 18:49 Carbonate Chewy PO 1 admin Bites Q4H PRN Administration DYSPEPSIA Oxycodone/Acetaminophen 1 tab 08/23/18 15:48 09/01/18 16:57 Percocet 5/325 Tab* PO 1 tab Q4H PRN Administration PAIN - MODERATE TO SEVERE Pantoprazole Sodium 40 mg 08/25/18 09:00 09/01/18 10:05 Protonix Tab* PO 40 mg DAILY BRETT Administration Polyethylene Glycol/Electrolytes 17 gm 08/25/18 20:57 Miralax* PO DAILY PRN CONSTIPATION Senna 2 tab 08/23/18 15:40 08/25/18 20:59 Senokot Tab* PO 2 tab BEDTIME PRN Administration CONSTIPATION Throat Lozenges 1 ivette 09/01/18 18:44 Chloraseptic Ivette* PO Q6H PRN SORE THROAT Vital Signs: Vital Signs Temp Pulse Resp BP Pulse Ox 98.1 F 90 18 180/47 97 09/01/18 16:35 09/01/18 16:35 09/01/18 19:04 09/01/18 16:35 09/01/18 19:04 Lab Results: Laboratory Results - last 24 hr 09/01/18 09/01/18 04:58 04:58 WBC 14.0 H RBC 2.66 L Hgb 8.3 L Hct 26 L MCV 97 MCH 31 MCHC 32 RDW 17 H Plt Count 511 H D MPV 7.1 L Neut % (Auto) 73.5 Lymph % (Auto) 13.5 Sanders % (Auto) 9.0 Eos % (Auto) 3.3 Baso % (Auto) 0.7 Absolute Neuts (auto) 10.3 H Absolute Lymphs (auto) 1.9 Absolute Monos (auto) 1.3 H Absolute Eos (auto) 0.5 Absolute Basos (auto) 0.1 Absolute Nucleated RBC 0 Nucleated RBC % 0 Sodium 140 Potassium 5.1 H Chloride 108 Carbon Dioxide 26 Anion Gap 6 BUN 34 H Creatinine 1.36 H Est GFR ( Amer) 44.6 Est GFR (Non-Af Amer) 36.9 BUN/Creatinine Ratio 25.0 H Glucose 103 H Calcium 8.4 L Total Bilirubin 0.30 AST 22 ALT 13 Alkaline Phosphatase 78 Total Protein 5.5 L Albumin 2.9 L Globulin 2.6 Albumin/Globulin Ratio 1.1 Exam: GENERAL: No distress LUNGS: Clear bilaterally HEART: Regular rhythm ABDOMEN: Soft +BS EXTREMITIES: Wound on LLE C/D/I NEUROLOGIC: A & O. Moves all 4 extremities. Normal sensation. Left leg weak, right leg has some weakness Assessment/Plan: 1. Left hip Fracture: WBAT. PT/OT. 2. Anemia: Hb 8.3, Hct 26, will follow. 3. CKD: Cr 1.36 4. Urinary Retention: has voided since quijano out 5. DVT Prophylaxis: Heparin S/Q 6. Advanced Directives: Full code. Son is HCP 7. Elevated BP: started Lopressor, increase to 25 BID. 8. Urinary tract infection: >100K Pseudomonas Aeruginosa sensitive to Cipro. Cipro 500 Q24H, day 4/5. 09/01/18 19:39 09/01/18 19:40
[2018-09-02] MEDS: oxyCODONE/Acetamin 5/325 MG* TAB PO PRN ×3 (02:11→20:08)
[2018-09-02] MEDS: Heparin VIAL(*) 5000 UNITS/ML VIAL (FIVE THOUSAND) SUBCUT SCH ×3 (06:07→22:28)
[2018-09-02] MEDS: Metoprolol Tartrate TAB* 25 MG PO SCH ×2 (07:50→20:08)
[2018-09-02] MEDS: Pantoprazole TAB * 40 MG TAB PO SCH (07:50)
[2018-09-02] MEDS: Docusate CAP* 100 MG PO SCH ×2 (07:50→20:08)
[2018-09-02] MEDS: Ciprofloxacin TAB* 500 MG PO SCH (16:32)
--- NOTE | 2018-09-02 18:35 | PN ---
Progress Note Date of Service: 09/02/18 Note: HIRO WEN was visited. Therapy notes read and reviewed. She has improved with her transfers. She has no complaints. SOre throat gone. Current Medications: Active Medications Generic Name Dose Route Start Last Admin Trade Name Freq PRN Reason Stop Dose Admin Acetaminophen 650 mg 08/23/18 15:40 09/01/18 10:06 Tylenol Tab* PO 650 mg Q6H PRN Administration FEVER/PAIN Docusate Sodium 100 mg 08/23/18 21:00 09/02/18 07:50 Colace Cap* PO 100 mg BID BRETT Administration Heparin Sodium (Porcine) 5,000 units 08/23/18 22:00 09/02/18 16:28 Heparin Vial(*) SUBCUT 5,000 units Q8HR BRETT Administration Magnesium Hydroxide 30 ml 08/23/18 15:40 08/25/18 17:14 Milk Of Magnesia Liq* PO 30 ml Q6H PRN Administration CONSTIPATION Metoprolol Tartrate 25 mg 09/01/18 21:00 09/02/18 07:50 Lopressor Tab* PO 25 mg Q12HR BRETT Administration Pto*Calcium 1 admin 08/28/18 16:00 08/28/18 18:49 Carbonate Chewy PO 1 admin Bites Q4H PRN Administration DYSPEPSIA Oxycodone/Acetaminophen 1 tab 08/23/18 15:48 09/02/18 10:22 Percocet 5/325 Tab* PO 1 tab Q4H PRN Administration PAIN - MODERATE TO SEVERE Pantoprazole Sodium 40 mg 08/25/18 09:00 09/02/18 07:50 Protonix Tab* PO 40 mg DAILY BRETT Administration Polyethylene Glycol/Electrolytes 17 gm 08/25/18 20:57 Miralax* PO DAILY PRN CONSTIPATION Senna 2 tab 08/23/18 15:40 08/25/18 20:59 Senokot Tab* PO 2 tab BEDTIME PRN Administration CONSTIPATION Throat Lozenges 1 ivette 09/01/18 18:44 Chloraseptic Ivette* PO Q6H PRN SORE THROAT Vital Signs: Vital Signs Temp Pulse Resp BP Pulse Ox 98.1 F 87 15 154/34 99 09/02/18 16:14 09/02/18 16:14 09/02/18 16:14 09/02/18 16:14 09/02/18 16:14 Exam: GENERAL: No distress LUNGS: Clear bilaterally HEART: Regular rhythm ABDOMEN: Soft +BS EXTREMITIES: Wound on LLE C/D/I NEUROLOGIC: A & O. Moves all 4 extremities. Normal sensation. Left leg weak, right leg has some weakness Assessment/Plan: 1. Left hip Fracture: WBAT. PT/OT. 2. Anemia: Hb 8.3, Hct 26, will follow. 3. CKD: Cr 1.36 4. Urinary Retention: has voided since quijano out 5. DVT Prophylaxis: Heparin S/Q 6. Advanced Directives: Full code. Son is HCP 7. Elevated BP: started Lopressor, increased to 25 BID. 8. Urinary tract infection: >100K Pseudomonas Aeruginosa sensitive to Cipro. Cipro 500 Q24H, day 5/5. 09/02/18 18:35
[2018-09-03] MEDS: Heparin VIAL(*) 5000 UNITS/ML VIAL (FIVE THOUSAND) SUBCUT SCH ×3 (05:25→22:01)
[2018-09-03] MEDS: Docusate CAP* 100 MG PO SCH ×2 (08:44→19:59)
[2018-09-03] MEDS: Pantoprazole TAB * 40 MG TAB PO SCH (08:48)
[2018-09-03] MEDS: Metoprolol Tartrate TAB* 25 MG PO SCH ×2 (08:48→19:59)
[2018-09-03] MEDS: oxyCODONE/Acetamin 5/325 MG* TAB PO PRN ×3 (08:48→19:59)
--- NOTE | 2018-09-03 10:10 | PN ---
Progress Note Date of Service: 09/03/18 Note: HIRO WEN was visited. Nurisng and therapy notes read and reviewed. No chest pain, shortness of breath or abdominal pain. Current Medications: Active Medications Generic Name Dose Route Start Last Admin Trade Name Freq PRN Reason Stop Dose Admin Acetaminophen 650 mg 08/23/18 15:40 09/01/18 10:06 Tylenol Tab* PO 650 mg Q6H PRN Administration FEVER/PAIN Docusate Sodium 100 mg 08/23/18 21:00 09/03/18 08:44 Colace Cap* PO Not Given BID BRETT Heparin Sodium (Porcine) 5,000 units 08/23/18 22:00 09/03/18 05:25 Heparin Vial(*) SUBCUT 5,000 units Q8HR BRETT Administration Magnesium Hydroxide 30 ml 08/23/18 15:40 08/25/18 17:14 Milk Of Magnesia Liq* PO 30 ml Q6H PRN Administration CONSTIPATION Metoprolol Tartrate 25 mg 09/01/18 21:00 09/03/18 08:48 Lopressor Tab* PO 25 mg Q12HR BRETT Administration Pto*Calcium 1 admin 08/28/18 16:00 08/28/18 18:49 Carbonate Chewy PO 1 admin Bites Q4H PRN Administration DYSPEPSIA Oxycodone/Acetaminophen 1 tab 08/23/18 15:48 09/03/18 08:48 Percocet 5/325 Tab* PO 1 tab Q4H PRN Administration PAIN - MODERATE TO SEVERE Pantoprazole Sodium 40 mg 08/25/18 09:00 09/03/18 08:48 Protonix Tab* PO 40 mg DAILY BRETT Administration Polyethylene Glycol/Electrolytes 17 gm 08/25/18 20:57 Miralax* PO DAILY PRN CONSTIPATION Senna 2 tab 08/23/18 15:40 08/25/18 20:59 Senokot Tab* PO 2 tab BEDTIME PRN Administration CONSTIPATION Throat Lozenges 1 ivette 09/01/18 18:44 Chloraseptic Ivette* PO Q6H PRN SORE THROAT Vital Signs: Vital Signs Temp Pulse Resp BP Pulse Ox 98.4 F 89 16 127/49 98 09/03/18 05:03 09/03/18 05:03 09/03/18 08:48 09/03/18 05:03 09/03/18 05:03 Exam: GENERAL: No acute distress. Alert and appropriate. LUNGS: Clear to auscultation bilaterally HEART: Regular rate and rhythm ABDOMEN: + bowel sounds, soft, non-tender, non-distended EXTREMITIES: ghanshyam on LLE C/D/I. 2 small excoriations on right upper chest and back look benign. NEUROLOGIC: 5/5 BUE/BLE with normal sensation except limited testing of left hip and knee due to surgery Assessment/Plan: 1. Left hip Fracture: WBAT. PT/OT. 2. Anemia: Hb 8.3, Hct 26 on 09/01/14 stable. will follow. 3. CKD: Cr 1.36, stable 4. Urinary Retention: resolved 5. DVT Prophylaxis: Heparin S/Q 6. Advanced Directives: Full code. Son is HCP 7. Hypertension: Lopressor was increased to 25mg BID. 8. Urinary tract infection with Pseudomonas Aeruginosa s/p 5 days Cipro. Had leukocytosis 09/01. Recheck. 09/03/18 10:09
[2018-09-03 10:48] LABS: Hematocrit 24 % (33-41); Hemoglobin 7.9 g/dL (12.0-16.0); Mean Corpuscular HGB Conc 33 g/dL (31-36); Mean Corpuscular Hemoglobin 32 pg (27-31); Mean Corpuscular Volume 98 fL (80-97); Platelet Count 527 10^3/uL (150-450); Red Blood Count 2.44 10^6 /uL (3.70-4.87); Red Cell Distribution Width 17 % (10.5-15); White Blood Count 12.7 10^3/uL (3.5-10.8)
[2018-09-03 11:55] LABS: Immature Granulocytes 2 % (0-9); Lymphocytes % 5 %; Metamyelocytes % 1 % (0-2); Monocytes % 7 %; Myelocytes % 1 % (0-1); Neutrophil % 84 %
[2018-09-03 11:59] LABS: ABS Eosinophils 0.3 10^3/ul (0-0.6); ABS Neutrophils 10.9 10^3/ul (1.5-7.7)
[2018-09-04] MEDS: oxyCODONE/Acetamin 5/325 MG* TAB PO PRN ×2 (02:20→20:02)
[2018-09-04] MEDS: Heparin VIAL(*) 5000 UNITS/ML VIAL (FIVE THOUSAND) SUBCUT SCH ×3 (05:24→21:28)
[2018-09-04] MEDS: Pantoprazole TAB * 40 MG TAB PO SCH (08:58)
[2018-09-04] MEDS: Metoprolol Tartrate TAB* 25 MG PO SCH ×2 (08:58→20:02)
[2018-09-04] MEDS: Docusate CAP* 100 MG PO SCH ×2 (08:58→20:02)
[2018-09-04] MEDS: Acetaminophen TAB* 325 MG PO PRN (09:00)
--- NOTE | 2018-09-04 10:26 | PN ---
Progress Note Date of Service: 09/04/18 Note: HIRO WEN was visited. Nursing and therapy notes read and reviewed. No chest pain, shortness of breath or abdominal pain. No new concerns. Current Medications: Active Medications Generic Name Dose Route Start Last Admin Trade Name Freq PRN Reason Stop Dose Admin Acetaminophen 650 mg 08/23/18 15:40 09/04/18 09:00 Tylenol Tab* PO 650 mg Q6H PRN Administration FEVER/PAIN Docusate Sodium 100 mg 08/23/18 21:00 09/04/18 08:58 Colace Cap* PO 100 mg BID BRETT Administration Heparin Sodium (Porcine) 5,000 units 08/23/18 22:00 09/04/18 05:24 Heparin Vial(*) SUBCUT 5,000 units Q8HR BRETT Administration Magnesium Hydroxide 30 ml 08/23/18 15:40 08/25/18 17:14 Milk Of Magnesia Liq* PO 30 ml Q6H PRN Administration CONSTIPATION Metoprolol Tartrate 25 mg 09/01/18 21:00 09/04/18 08:58 Lopressor Tab* PO 25 mg Q12HR BRETT Administration Pto*Calcium 1 admin 08/28/18 16:00 08/28/18 18:49 Carbonate Chewy PO 1 admin Bites Q4H PRN Administration DYSPEPSIA Oxycodone/Acetaminophen 1 tab 08/23/18 15:48 09/04/18 02:20 Percocet 5/325 Tab* PO 1 tab Q4H PRN Administration PAIN - MODERATE TO SEVERE Pantoprazole Sodium 40 mg 08/25/18 09:00 09/04/18 08:58 Protonix Tab* PO 40 mg DAILY BRETT Administration Polyethylene Glycol/Electrolytes 17 gm 08/25/18 20:57 Miralax* PO DAILY PRN CONSTIPATION Senna 2 tab 08/23/18 15:40 08/25/18 20:59 Senokot Tab* PO 2 tab BEDTIME PRN Administration CONSTIPATION Throat Lozenges 1 ivette 09/01/18 18:44 Chloraseptic Ivette* PO Q6H PRN SORE THROAT Vital Signs: Vital Signs Temp Pulse Resp BP Pulse Ox 99.4 F 80 16 115/30 96 09/04/18 05:03 09/04/18 05:03 09/04/18 05:03 09/04/18 05:03 09/04/18 05:03 Lab Results: Laboratory Results - last 24 hr 09/03/18 10:40 WBC 12.7 H RBC 2.44 L Hgb 7.9 L Hct 24 L MCV 98 H MCH 32 H MCHC 33 RDW 17 H Plt Count 527 H MPV 7.0 L Neut % (Auto) Not Reportable Lymph % (Auto) Not Reportable [place] % (Auto) Not Reportable Eos % (Auto) Not Reportable Baso % (Auto) Not Reportable Absolute Neuts (auto) Not Reportable Absolute Lymphs (auto) Not Reportable Absolute Monos (auto) Not Reportable Absolute Eos (auto) Not Reportable Absolute Basos (auto) Not Reportable Absolute Nucleated RBC Not Reportable Immature Gran % 2 Neutrophils % 84 Lymphocytes % 5 Monocytes % 7 Eosinophils % 2 Metamyelocytes % 1 Myelocytes % 1 Nucleated RBC % Not Reportable Abs Neuts (Manual) 10.9 H Abs Lymphs (Manual) 0.63 L Abs Monocytes (Manual) 0.9 H Absolute Eos (Manual) 0.3 Normal RBC Morphology Not Reportable Hypochromasia 1+ Anisocytosis 1+ Exam: GENERAL: No acute distress. Alert and appropriate. LUNGS: Clear to auscultation bilaterally HEART: Regular rate and rhythm ABDOMEN: + bowel sounds, soft, non-tender, non-distended EXTREMITIES: ghanshyam on LLE C/D/I. 2 small excoriations on right upper chest and back look benign. NEUROLOGIC: 5/5 BUE/BLE with normal sensation except limited testing of left hip and knee due to surgery Assessment/Plan: 1. Left hip Fracture: WBAT. PT/OT. 2. Anemia: stable. follow labs 3. CKD: Cr 1.36, stable 4. Urinary Retention: resolved 5. DVT Prophylaxis: Heparin S/Q 6. Advanced Directives: Full code. Son is HCP 7. Hypertension: Lopressor was increased to 25mg BID. 8. Urinary tract infection with Pseudomonas Aeruginosa s/p 5 days Cipro. Leukocytosis improved. f/u labs. 09/04/18 10:25
[2018-09-05] MEDS: Heparin VIAL(*) 5000 UNITS/ML VIAL (FIVE THOUSAND) SUBCUT SCH ×3 (05:12→21:50)
[2018-09-05] MEDS: Acetaminophen TAB* 325 MG PO PRN ×2 (08:28→16:45)
[2018-09-05] MEDS: Docusate CAP* 100 MG PO SCH ×2 (08:28→20:49)
[2018-09-05] MEDS: Pantoprazole TAB * 40 MG TAB PO SCH (08:28)
[2018-09-05] MEDS: Metoprolol Tartrate TAB* 25 MG PO SCH ×2 (08:28→20:47)
--- NOTE | 2018-09-05 10:32 | PN ---
Progress Note Date of Service: 09/05/18 Note: HIRO Brown BEHZAD was visited. Therapy notes read and reviewed. No new concerns overnight. No chest pain, shortness of breath or abdominal pain. Current Medications: Active Medications Generic Name Dose Route Start Last Admin Trade Name Freq PRN Reason Stop Dose Admin Acetaminophen 650 mg 08/23/18 15:40 09/05/18 08:28 Tylenol Tab* PO 650 mg Q6H PRN Administration FEVER/PAIN Docusate Sodium 100 mg 08/23/18 21:00 09/05/18 08:28 Colace Cap* PO 100 mg BID BRETT Administration Heparin Sodium (Porcine) 5,000 units 08/23/18 22:00 09/05/18 05:12 Heparin Vial(*) SUBCUT 5,000 units Q8HR BRETT Administration Magnesium Hydroxide 30 ml 08/23/18 15:40 08/25/18 17:14 Milk Of Magnesia Liq* PO 30 ml Q6H PRN Administration CONSTIPATION Metoprolol Tartrate 25 mg 09/01/18 21:00 09/05/18 08:28 Lopressor Tab* PO 25 mg Q12HR BRETT Administration Pto*Calcium 1 admin 08/28/18 16:00 08/28/18 18:49 Carbonate Chewy PO 1 admin Bites Q4H PRN Administration DYSPEPSIA Oxycodone/Acetaminophen 1 tab 08/23/18 15:48 09/04/18 20:02 Percocet 5/325 Tab* PO 1 tab Q4H PRN Administration PAIN - MODERATE TO SEVERE Pantoprazole Sodium 40 mg 08/25/18 09:00 09/05/18 08:28 Protonix Tab* PO 40 mg DAILY BRETT Administration Polyethylene Glycol/Electrolytes 17 gm 08/25/18 20:57 Miralax* PO DAILY PRN CONSTIPATION Senna 2 tab 08/23/18 15:40 08/25/18 20:59 Senokot Tab* PO 2 tab BEDTIME PRN Administration CONSTIPATION Throat Lozenges 1 ivette 09/01/18 18:44 Chloraseptic Ivette* PO Q6H PRN SORE THROAT Vital Signs: Vital Signs Temp Pulse Resp BP Pulse Ox 98.5 F 74 18 148/60 99 09/05/18 05:11 09/05/18 05:11 09/05/18 05:11 09/05/18 05:15 09/05/18 05:11 Exam: GENERAL: No acute distress. Alert and appropriate. LUNGS: Clear to auscultation bilaterally HEART: Regular rate and rhythm ABDOMEN: + bowel sounds, soft, non-tender, non-distended EXTREMITIES: ghanshyam on LLE C/D/I. 2 small excoriations on right upper chest and back look benign. NEUROLOGIC: 5/5 BUE/BLE with normal sensation except limited testing of left hip and knee due to surgery Assessment/Plan: 1. Left hip Fracture: WBAT. PT/OT. 2. Anemia: stable. follow labs 3. CKD: Cr 1.36, stable 4. Urinary Retention: resolved 5. DVT Prophylaxis: Heparin S/Q 6. Advanced Directives: Full code. Son is HCP 7. Hypertension: Lopressor was increased to 25mg BID. 8. Urinary tract infection with Pseudomonas Aeruginosa s/p 5 days Cipro. Leukocytosis improved. f/u labs. 09/05/18 10:32
[2018-09-05] MEDS: oxyCODONE/Acetamin 5/325 MG* TAB PO PRN (20:47)
[2018-09-06] MEDS: Heparin VIAL(*) 5000 UNITS/ML VIAL (FIVE THOUSAND) SUBCUT SCH ×3 (06:19→22:08)
[2018-09-06] MEDS: oxyCODONE/Acetamin 5/325 MG* TAB PO PRN (09:20)
[2018-09-06] MEDS: Docusate CAP* 100 MG PO SCH ×2 (09:20→20:07)
[2018-09-06] MEDS: Metoprolol Tartrate TAB* 25 MG PO SCH ×2 (09:20→20:07)
[2018-09-06] MEDS: Pantoprazole TAB * 40 MG TAB PO SCH (09:20)
--- NOTE | 2018-09-06 17:31 | PN ---
Progress Note Date of Service: 09/06/18 Note: HIRO WEN was visited. Therapy notes read and reviewed. Able to stand for longer periods but does get stuck with some tasks and has trouble thinking her way out of problems. Current Medications: Active Medications Generic Name Dose Route Start Last Admin Trade Name Freq PRN Reason Stop Dose Admin Acetaminophen 650 mg 08/23/18 15:40 09/05/18 16:45 Tylenol Tab* PO 650 mg Q6H PRN Administration FEVER/PAIN Docusate Sodium 100 mg 08/23/18 21:00 09/06/18 09:20 Colace Cap* PO 100 mg BID BRETT Administration Heparin Sodium (Porcine) 5,000 units 08/23/18 22:00 09/06/18 14:24 Heparin Vial(*) SUBCUT 5,000 units Q8HR BRETT Administration Magnesium Hydroxide 30 ml 08/23/18 15:40 08/25/18 17:14 Milk Of Magnesia Liq* PO 30 ml Q6H PRN Administration CONSTIPATION Metoprolol Tartrate 25 mg 09/01/18 21:00 09/06/18 09:20 Lopressor Tab* PO 25 mg Q12HR BRETT Administration Pto*Calcium 1 admin 08/28/18 16:00 08/28/18 18:49 Carbonate Chewy PO 1 admin Bites Q4H PRN Administration DYSPEPSIA Oxycodone/Acetaminophen 1 tab 08/23/18 15:48 09/06/18 09:20 Percocet 5/325 Tab* PO 1 tab Q4H PRN Administration PAIN - MODERATE TO SEVERE Pantoprazole Sodium 40 mg 08/25/18 09:00 09/06/18 09:20 Protonix Tab* PO 40 mg DAILY BRETT Administration Polyethylene Glycol/Electrolytes 17 gm 08/25/18 20:57 Miralax* PO DAILY PRN CONSTIPATION Senna 2 tab 08/23/18 15:40 08/25/18 20:59 Senokot Tab* PO 2 tab BEDTIME PRN Administration CONSTIPATION Throat Lozenges 1 ivette 09/01/18 18:44 Chloraseptic Ivette* PO Q6H PRN SORE THROAT Vital Signs: Vital Signs Temp Pulse Resp BP Pulse Ox 97.8 F 79 13 143/36 100 09/06/18 15:20 09/06/18 15:20 09/06/18 17:15 09/06/18 15:20 09/06/18 17:15 Exam: GENERAL: No acute distress. Alert and appropriate. LUNGS: Clear to auscultation bilaterally HEART: Regular rate and rhythm ABDOMEN: + bowel sounds, soft, non-tender, non-distended EXTREMITIES: ghanshyam on LLE C/D/I. 2 small excoriations on right upper chest and back look benign. NEUROLOGIC: 5/5 BUE/BLE with normal sensation except limited testing of left hip and knee due to surgery Assessment/Plan: 1. Left hip Fracture: WBAT. PT/OT. 2. Anemia: stable. follow labs 3. CKD: Cr 1.36, stable 4. DVT Prophylaxis: Heparin S/Q 5. Advanced Directives: Full code. Son is HCP 6. Hypertension: Lopressor was increased to 25mg BID. Pressures better 09/06/18 17:31 09/06/18 17:32
[2018-09-06] MEDS: Acetaminophen TAB* 325 MG PO PRN (20:07)
[2018-09-07] MEDS: oxyCODONE/Acetamin 5/325 MG* TAB PO PRN ×2 (04:50→23:17)
[2018-09-07] MEDS: Heparin VIAL(*) 5000 UNITS/ML VIAL (FIVE THOUSAND) SUBCUT SCH ×3 (05:27→21:05)
[2018-09-07] MEDS: Metoprolol Tartrate TAB* 25 MG PO SCH ×2 (09:40→21:04)
[2018-09-07] MEDS: Docusate CAP* 100 MG PO SCH ×2 (09:40→21:04)
[2018-09-07] MEDS: Pantoprazole TAB * 40 MG TAB PO SCH (09:40)
--- NOTE | 2018-09-07 12:29 | PMRUTEAM ---
PMRU: Team Meeting Current Status: Nursing: Current Status Skin Deviations [L hip] Incision Skin Deviations [L AC] Bruise Skin Deviation Description [L well healed. [employer]. [employer] intact hip] Bladder Current Status Using bedpan while in bed and commode when OOB Bowel Current Status Using bedpan while in bed and commode when OOB Nutrition Current Status 50% of most meals Medication Current Status Pain meds given Physical Therapy: Current Status Bed Mobility Assistance Mod Assist,Not Tested Transfer Mobility Assistance Supervision,Contact Guard Assist Transfer/Bed Mobility Rolling Walker Recommended Devices Ambulation Assistance Supervision,Contact Guard Assist Ambulation Assistive Devices Rolling Walker Number of Feet Patient 30' x 2 Ambulated Ambulation Comment very slow antalgic srep to type gait Stairs Assistance Not Tested Stairs Recommended Devices Two Rails Number of Stairs 3 Curb Not Tested Occupational Therapy: Current Status Upper Body Dressing Supervision Lower Body Dressing Min Assist Bathing Min Assist Toileting Contact Guard Assist Toilet Transfer Min Assist Shower Transfer Min Assist Eating Independent Rec Therapy: Current Status Summary of Assessment and pt. has been cheery and talkative but declines Clinical Impression recreation services d/t being too tired after therapy sessions. Treatment Goals pt. will engage in recreation while on the unit Treatment Plan continue offering recreation services Social Work: Current Status Discharge Plan transition to a [facility] Potential for Family Training n/a Anticipated Discharge [facility] Facility Destination Anticipated Discharge pt and son/hcp have requested [facility] due to not Destination Comment feeling safe alone at home Discharge With [facility] for continued rehab Nutrition: Current Status Monitoring po intake w/regular diet improved since adm to avergae ~75% of meals. Overall appears to be meeting needs. Daily BMs. Hx CKD but no indication for modification in diet (K was only 5.1 on 09/01; anticipate weekly labs tomorrow). Serum mag was very mildly elevated on 08/23 (2.8); not rechecked, but likely not a concern since mag supplementation has been held since that time. Appears to be meeting goals as outlined below. Speech: Current Status Assessment Patient is progressing as expected. Given moderate cueing faded to minimal, patient adopted compensatory strategie and completed complex alternating trails task accurately. Goals: Physical Therapy: Initial Goals Bed Mobility Assistance Independent Transfer Mobility Assistance Independent Transfer/Bed Mobility Rolling Walker Recommended Devices Ambulation Independent Ambulation Recommended Devices Rolling Walker Ambulation Distance 150 Stairs Assistance Independent Stair Recommended Devices One Rail Number of Stairs 5 Home Exercise Program Independent Assistance Physical Therapy: Updated Goals Bed Mobility Assistance Independent Transfer Mobility Assistance Independent Transfer/Bed Mobility Rolling Walker,EZ Stand Recommended Devices Ambulation Assistance Contact Guard Assist Ambulation Assistive Devices Rolling Walker Ambulation Distance (ft) 30' Occupational Therapy: Initial Goals Goals to be Completed in (Days 3-4 weeks ) Upper Body Bathing Routine Independent Lower Body Bathing Routine Modified Independent with Upper Body Dressing Routine Independent Lower Body Dressing Routine Modified Independent with Toilet Hygeine and Clothing Modified Independent with Management Routine Toilet Transfer Routine Modified Independent with Step-In Shower Transfer Supervision/Set Up Routine Functional Transfers for ADL Modified Independent with Grooming Routine Independent Feeding Routine Independent Nursing: Goals Bladder Goal Independent Bowel Goal Independent Nutrition Goal 100% of all meals Medication Goal Independent with administration Nutrition: Goals Intervention Goals 1. Maintain adequate intake (average >50%) to support post op, maintenance of lean body mass. 2. Maintain regular bowel pattern w/o constipation or diarrhea. 3. Maintain Mg WNL. Speech: Goals Speech Goal 1 Memory Goal 1 Comments Memory Goals: Long-Term Memory Goal: Pt will use compensatory strategies to attend to, encode and retrieve 4/4 new items after delay of 30 minutes, Independently , for independence in mobility safety, ADLs and community access. Status: Progressing as expected. Given auditory presentation of 3-4 word lists od words, patient answered follow-up questions such as "Which word was second" with 80% accuracy Short-term Memory Goal: Pt will use compensatory strategies to attend to, encode and retrieve 3/4 new items after delay of 5 minutes, given Moderate skilled instruction and cueing. Status: Progressing as expected. Speech Goal 2 Problem Solving Goals: Speech Goal 2 Comments Problem Solving Goals: Long-Term Goal: Pt will use compensatory strategies to solve moderately complex routine problems, with 100% accuracy, Independently, for personal safety and ADLs such as shopping, time and money management. Status: Progressing as expected. Short-Term Goal: Pt will use compensatory strategies to solve simple routine problems, with 80% accuracy, given Moderate skilled instruction and cueing, for personal safety and ADLs such as shopping, time and money management. Status: Progressing as expected. Given printed 4-word scambled sentences to read, patient repeated aloud and correctly resequenced to make sense, with minimal cueing faded to independent. expected. Given moderate cueing faded to minimal, patient adopted compensatory strategie and completed complex alternating trails task accurately. Social Work: Goals Discharge Plan transition to a [facility] Potential for Family Training n/a Anticipated Discharge [facility] Facility Destination Anticipated Discharge pt and son/hcp have requested [facility] due to not Destination Comment feeling safe alone at home Discharge With [facility] for continued rehab Care Plan: Care Plan ADL's - Improve/Maintain Start: 08/25/18 07:10 Freq: DAILY Status: Active Target: Protocol: Activity Type Activity Date Activity User E-Sign Co-Sign Detail Recorded Client Recorded Date Recorded By Document 09/07/18 11:41 [id number] [email or web address] 09/07/18 11:41 [id number] 09/07/18 11:41 PMRU Outcome: ADL's/ADL Transfers Orders/Interventions Occupational Therapy Evaluation & Treatment Communication Tool in Patient Room Patient to receive OT 5x/wk for 60-120 Therex min/day Self Care Management Group Therapy UE/LE ADL's with Assist Yes: mod I ADL Transfers with Assist Yes: mod I Toileting: Transfers,Clothing Management Yes: mod I ,Hygeine w/Assist Light Kitchen/Laundry w/Assist Yes: min A Progression Toward Outcome/Goals Progressing Outcome/Goals Met Pt making gains with mobility but has difficulty with sequencing through any new task. Optical Design Engineer has concerns about her ability to manage her self -care routine at home. She does well with cues and set-up but has difficulty with attention, problem solving and memory. Cardiovascular- Improve/Maintain Start: 08/25/18 16:09 Freq: QSHIFT Status: Complete Target: Protocol: Activity Type Activity Date Activity User E-Sign Co-Sign Detail Recorded Client Recorded Date Recorded By Document 09/05/18 08:00 [id number] [email or web address] 09/05/18 12:06 [id number] 09/05/18 08:00 PMRU Outcome: Cardiovascular Vital Signs q Shift for 48hrs Then BID Yes Daily Weight Ordered No Current Cardiovascular Outcome/Goal Maintain/ Achieve Baseline HR, BP , Perfusion Maintain/ Achieve Hemodynamic Stability Free of Abnormal Cardiac Symptoms Outcomes/Goals Met Maintain/ Achieve Baseline HR, BP , Perfusion Maintain/ Improve Perfusion Communication-Improve/Maintain Start: 08/27/18 11:58 Freq: DAILY Status: Active Target: Protocol: Activity Type Activity Date Activity User E-Sign Co-Sign Detail Recorded Client Recorded Date Recorded By Document 09/05/18 23:16 [id number] [id number] 09/05/18 23:16 [id number] 09/05/18 23:16 PMRU Outcome: Communication/Cognitive Status Outcome/Goals Use Comm Tools/ Devices Makes Needs Known Effectively Other Outcomes/Goals Memory Goals: Long-Term Memory Goal: Pt will use compensatory strategies to encode and retrieve 4/4 new items after delay of 30 minutes, Independently, for independence in mobility safety, ADLs and community access. Short-term Memory Goal: Pt will use compensatory strategies to encode and retrieve 3/4 new items after delay of 5 minutes, given Moderate skilled instruction and cueing. Problem Solving Goals: Long-Term Goal: Pt will use compensatory strategies to solve moderately complex routine problems, with 100% accuracy, Independently, for personal safety and ADLs such as shopping, time and money management. Short-Term Goal : Pt will use compensatory strategies to solve simple routine problems, with 80% accuracy, given Moderate skilled instruction and cueing, for personal safety and ADLs such as shopping, time and money management. Progression Toward Outcomes/Goals Progressing DVT Prophylaxis- Improve/Maintain Start: 08/25/18 16:09 Freq: QSHIFT Status: Complete Target: Protocol: Activity Type Activity Date Activity User E-Sign Co-Sign Detail Recorded Client Recorded Date Recorded By Document 09/05/18 08:00 [id number] [email or web address] 09/05/18 12:06 [id number] 09/05/18 08:00 PMRU Outcome: DVT Prophylaxis Outcome/Goals Remains Free of DVT Complies with DVT Prophylaxis /Treatment Demonstrates Knowledge of DVT Prevention/ Treatment TEDS Stockings on Every AM, Off at HS Outcome/Goals Met Remains Free of DVT Discharge Planning - Improve/Maintain Start: 08/25/18 16:09 Freq: DAILY Status: Active Target: Protocol: Activity Type Activity Date Activity User E-Sign Co-Sign Detail Recorded Client Recorded Date Recorded By Document 09/06/18 23:30 [id number] [email or web address] 09/06/18 23:31 [id number] 09/06/18 23:30 PMRU Outcome: Discharge Planning Update Patient Family No Outcome/Goals Demonstrates Understanding of Discharge Plan Progression Toward Outcome/Goals Progressing Education-Improve/Maintain Start: 08/25/18 16:09 Freq: QSHIFT Status: Active Target: Protocol: Activity Type Activity Date Activity User E-Sign Co-Sign Detail Recorded Client Recorded Date Recorded By Document 09/06/18 20:00 [id number] [email or web address] 09/06/18 20:51 [id number] 09/06/18 20:00 PMRU Outcome: Education Outcome/Goals Demonstrates Skills Encourage Questions Progression Toward Outcome/Goals Progressing /GI-Improve/Maintain Start: 08/25/18 16:09 Freq: QSHIFT Status: Active Target: Protocol: Activity Type Activity Date Activity User E-Sign Co-Sign Detail Recorded Client Recorded Date Recorded By Document 09/06/18 20:00 [id number] 09/06/18 20:51 [id number] 09/06/18 20:00 PMRU Outcome: Genitourinary/ Gastrointestinal Genitourinary- Outcome/Goals Maintain/ Achieve Urinary Continence Remain Free of Hospital- Acquired UTI Gastrointestinal-Outcome/Goals Remain Free of Emesis Prevent Constipation Laxatives as Ordered Progression Toward Outcome/Goals - Progressing Progression Toward Outcome/Goals - GI Progressing Genitourinary-Improve/Maintain Start: 08/25/18 00:46 Freq: DAILY@08 Status: Complete Target: Protocol: Activity Type Activity Date Activity User E-Sign Co-Sign Detail Recorded Client Recorded Date Recorded By Document 08/31/18 08:10 [id number] [email or web address] 08/31/18 09:36 [id number] 08/31/18 08:10 Outcome: Genitourinary Outcome/Goals Maintain/ Achieve Urinary Continence Remain Free of Hospital- Acquired UTI Progression Toward Outcome/Goals Progressing Infection-Improve/Maintain Start: 08/25/18 00:46 Freq: DAILY@08 Status: Complete Target: Protocol: Activity Type Activity Date Activity User E-Sign Co-Sign Detail Recorded Client Recorded Date Recorded By Document 09/05/18 08:00 [id number] [email or web address] 09/05/18 12:06 [id number] 09/05/18 08:00 Outcome: Infection Outcome/Goals Remain Free of Infection Outcome/Goals Met Remains Free of Infection Medication Administration Start: 08/25/18 16:09 Freq: QSHIFT Status: Active Target: Protocol: Activity Type Activity Date Activity User E-Sign Co-Sign Detail Recorded Client Recorded Date Recorded By Document 09/06/18 20:00 [id number] [email or web address] 09/06/18 20:51 [id number] 09/06/18 20:00 PMRU Outcome: Medication Administration Assess Patient Knowledge/Teach Med Yes Education for all Meds Outcome/Goals Patient Independent with Medication Administration at Home Demonstrates Understanding Progression Towards Outcome/Goals Progressing Is Patient Going Home on Lovenox? No Pain/Comfort- Improve/Maintain Start: 08/25/18 16:09 Freq: QSHIFT Status: Active Target: Protocol: Activity Type Activity Date Activity User E-Sign Co-Sign Detail Recorded Client Recorded Date Recorded By Document 09/06/18 20:00 [id number] 09/06/18 20:51 [id number] 09/06/18 20:00 PMRU Outcome: Pain/Comfort Outcome/Goals Demonstrates Knowledge and Use of Available Comfort Measures Achieves Acceptable Comfort/Pain Level as Determined by Patient/Condit Maintain Comfort Level Allowing Patient to Fully Participate in Rehab Progression Toward Outcome/Goals Progressing Safety- Improve/Maintain Start: 08/25/18 16:09 Freq: QSHIFT Status: Active Target: Protocol: Activity Type Activity Date Activity User E-Sign Co-Sign Detail Recorded Client Recorded Date Recorded By Document 09/06/18 20:00 [id number] 09/06/18 20:51 [id number] 09/06/18 20:00 PMRU Outcome: Safety Outcome/Goals Remain Free of Injury or Harm Cooperates with Safety Measures for Least Restrictive Environment Prevent Falls/ Injury Progression Toward Outcome/Goals Progressing Skin- Improve/Maintain Start: 08/25/18 16:09 Freq: QSHIFT Status: Active Target: Protocol: Activity Type Activity Date Activity User E-Sign Co-Sign Detail Recorded Client Recorded Date Recorded By Document 09/06/18 20:00 [id number] [email or web address] 09/06/18 20:51 [id number] 09/06/18 20:00 PMRU Outcome: Skin Skin Risk Level Medium Skin Orders Spenco Boots Heels Off Bed Turn/Position q2hr While in Bed Outcome/Goals Maintain/ Improve Skin Intergrity Free from Decubitus Surgical Incisions Healing Progression Toward Outcome/Goals Progressing Medicine Note: Length of Stay: 2 days Anticipated Discharge Destination: [facility] Facility Tentative Discharge Date: 09/10/18 Discharged to: SNF
--- NOTE | 2018-09-07 16:33 | PN ---
Progress Note Date of Service: 09/07/18 Note: HIRO WEN was visited. Therapy notes read and reviewed. She was discussed in interdisciplinary team rounds. Her ghanshyam were removed without incident. She and her son have decided that she cannot return home and she will go to [facility] tomorrow for [facility] Current Medications: Active Medications Generic Name Dose Route Start Last Admin Trade Name Freq PRN Reason Stop Dose Admin Acetaminophen 650 mg 08/23/18 15:40 09/06/18 20:07 Tylenol Tab* PO 650 mg Q6H PRN Administration FEVER/PAIN Docusate Sodium 100 mg 08/23/18 21:00 09/07/18 09:40 Colace Cap* PO 100 mg BID BRETT Administration Heparin Sodium (Porcine) 5,000 units 08/23/18 22:00 09/07/18 14:34 Heparin Vial(*) SUBCUT 5,000 units Q8HR BRETT Administration Magnesium Hydroxide 30 ml 08/23/18 15:40 08/25/18 17:14 Milk Of Magnesia Liq* PO 30 ml Q6H PRN Administration CONSTIPATION Metoprolol Tartrate 25 mg 09/01/18 21:00 09/07/18 09:40 Lopressor Tab* PO 25 mg Q12HR BRETT Administration Pto*Calcium 1 admin 08/28/18 16:00 08/28/18 18:49 Carbonate Chewy PO 1 admin Bites Q4H PRN Administration DYSPEPSIA Oxycodone/Acetaminophen 1 tab 08/23/18 15:48 09/07/18 04:50 Percocet 5/325 Tab* PO 1 tab Q4H PRN Administration PAIN - MODERATE TO SEVERE Pantoprazole Sodium 40 mg 08/25/18 09:00 09/07/18 09:40 Protonix Tab* PO 40 mg DAILY BRETT Administration Polyethylene Glycol/Electrolytes 17 gm 08/25/18 20:57 Miralax* PO DAILY PRN CONSTIPATION Senna 2 tab 08/23/18 15:40 08/25/18 20:59 Senokot Tab* PO 2 tab BEDTIME PRN Administration CONSTIPATION Throat Lozenges 1 ivette 09/01/18 18:44 Chloraseptic Ivette* PO Q6H PRN SORE THROAT Vital Signs: Vital Signs Temp Pulse Resp BP Pulse Ox 98.1 F 79 16 152/48 97 09/07/18 04:54 09/07/18 04:54 09/07/18 11:30 09/07/18 05:00 09/07/18 04:54 Exam: GENERAL: No acute distress. Alert and appropriate. LUNGS: Clear to auscultation bilaterally HEART: Regular rate and rhythm ABDOMEN: + bowel sounds, soft, non-tender, non-distended EXTREMITIES: ghanshyam on LLE C/D/I. 2 small excoriations on right upper chest and back look benign. NEUROLOGIC: 5/5 BUE/BLE with normal sensation except limited testing of left hip and knee due to surgery Assessment/Plan: 1. Left hip Fracture: WBAT. PT/OT. Mylo removed. Follow up with Dr. Chapman 2. Anemia: stable. follow labs 3. CKD: Cr 1.36, stable 4. DVT Prophylaxis: Heparin S/Q 5. Advanced Directives: Full code. Son is HCP 6. Hypertension: Lopressor was increased to 25mg BID. Pressures better 09/07/18 16:34 09/07/18 16:37
--- NOTE | 2018-09-07 20:32 | TRS ---
: [facility] * TRANSFER SUMMARY: DATE OF ADMISSION: 08/23/18 DATE OF DISCHARGE: 09/08/18 DISCHARGE DIAGNOSES: 1. Left hip fracture. 2. Hypertension. 3. Chronic kidney disease. 4. Acute blood loss anemia. 5. Urinary retention. 6. Urinary tract infection. 7. Hydronephrosis, left kidney with an indwelling stent. 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 9. Coronary artery disease, status post coronary artery bypass graft, remote. HISTORY OF ILLNESS AND HOSPITAL COURSE: For complete history of the events leading up to her rehab stay, please see the history and physical dictated by me on 08/23/18. The patient had urinary retention after her hip surgery and had an indwelling [place] catheter. She had an elevated white count on admission and a urinalysis was sent. It was consistent with a urinary tract infection. It eventually grew out pseudomonas. She received 5 days of oral Cipro, renally dosed for this problem. The patient's blood pressures were elevated and her heart rate was tachycardic throughout the beginning of her rehab stay. She was started on Lopressor, which subsequently treated both problems. The patient did have [place] clamping. Her [place] catheter was removed and she was able to void following this. The patient's white blood cell count remained slightly elevated in the 12,000 range even after her urinary tract infection was treated. This was felt to be a chronic problem. The patient's BUN and creatinine remained stable throughout her rehab stay. As the patient sought no medical treatment prior to admission, it was felt that she had chronic kidney disease. She did have a renal ultrasound on the acute medical service which was largely unrevealing. The patient was seen by physical therapy and occupational therapy and made good gains with both disciplines. With physical therapy at the time of admission, the patient required an easy business law teacher order to transfer. She was not able to ambulate. By the time of discharge, the patient was transferring with contact guard, ambulating about 30 feet with contact guard. With occupational therapy at the time of admission, the patient required total assistance for lower body dressing, min assist for upper body dressing, total assistance for toileting, total assistance for toilet transfers. By the time of discharge, the patient was contact guard for toileting, min assist for toilet transfers, min assist for lower body dressing, and supervision for upper body dressing. The patient's son and the patient herself felt like she would not be able to return home in the short term. She is being transferred [facility] in order to undergo continued rehabilitation on a slower scale so that she might return home to independent living. DISCHARGE DIET: Regular. DISCHARGE MEDICATIONS: Include: 1. Heparin 5000 units subcutaneously every 8 hours. 2. Colace 100 mg twice a day. 3. Lopressor 25 mg every 12 hours. 4. Percocet 1 tab every 4 hours as needed for pain with a maximum daily dose of 4. 5. MiraLAX 17 g p.o. daily as needed. 6. Senokot 2 tablets at bedtime as needed. SERVICES AFTER DISCHARGE: She should have restorative physical therapy and occupational therapy. The patient also was seen by speech therapy because of cognitive and linguistic problems. The patient's cognition gradually improved, although she still had some difficulties with recall at the time of discharge. [id number]/CPS #: [id number] SORAYA
[2018-09-08] MEDS: Heparin VIAL(*) 5000 UNITS/ML VIAL (FIVE THOUSAND) SUBCUT SCH (05:13)
[2018-09-08 05:25] LABS: ABS Basophils 0.1 10^3/ul (0-0.2); ABS Eosinophils 0.5 10^3/ul (0-0.6); ABS Lymphocytes 1.3 10^3/ul (1.0-4.8); ABS Monocytes 0.9 10^3/ul (0-0.8); ABS Nucleated RBC 0 10^3/ul; Eosinophil % 6.3 %; Hematocrit 25 % (33-41); Hemoglobin 8.2 g/dL (12.0-16.0); Lymphocyte % 16.4 %; Mean Corpuscular HGB Conc 34 g/dL (31-36); Mean Corpuscular Hemoglobin 33 pg (27-31); Mean Corpuscular Volume 98 fL (80-97); Mean Platelet Volume 7.5 fL (7.4-10.4); Nucleated Red Blood Cells % 0; Platelet Count 495 10^3/uL (150-450); Red Blood Count 2.52 10^6 /uL (3.70-4.87); Red Cell Distribution Width 17 % (10.5-15); White Blood Count 7.7 10^3/uL (3.5-10.8)
[2018-09-08 05:35] LABS: Albumin 2.9 g/dL (3.2-5.2); Albumin/Globulin Ratio 1.1 (1-3); BUN/Creatinine Ratio 22.6 (8-20); EGFR African American 44.2 (>60); EGFR Non-African American 36.6 (>60); Globulin 2.6 g/dL (2-4); Potassium 5.1 mmol/L (3.5-5.0); Total Bilirubin 0.3 mg/dL (0.2-1.0); Total Protein 5.5 g/dL (6.4-8.9)
[2018-09-08 06:03] VITALS: BP 176/58
[2018-09-08] MEDS: Metoprolol Tartrate TAB* 25 MG PO SCH (08:36)
[2018-09-08] MEDS: Acetaminophen TAB* 325 MG PO PRN (08:37)
[2018-09-08] MEDS: Pantoprazole TAB * 40 MG TAB PO SCH (08:37)
[2018-09-08] MEDS: Docusate CAP* 100 MG PO SCH (08:37)
== END 2018-09-08 11:30 | DRG 560 ==
LOC: PMRU 15:15
PROVIDERS: ADMIT Physical Medicine & Rehabilitation; ATTEND Physical Medicine & Rehabilitation
PROC: F07Z5ZZ Bed Mobility Treatment (ICD-10-PCS; principal; 2018-08-23)
PROC: F07Z9ZZ Gait Training/Functional Ambulation Treatment (ICD-10-PCS; 2018-08-23)
PROC: F07Z8ZZ Transfer Training Treatment (ICD-10-PCS; 2018-08-23)
PROC: F08Z0ZZ Bathing/Showering Techniques Treatment (ICD-10-PCS; 2018-08-23)
PROC: F08Z1ZZ Dressing Techniques Treatment (ICD-10-PCS; 2018-08-23)
PROC: F08Z3ZZ Feeding/Eating Treatment (ICD-10-PCS; 2018-08-23)
DX: S72.002D Fracture of unspecified part of neck of left femur, subsequent encounter for closed fracture with routine healing (principal); N39.0 Urinary tract infection, site not specified; N13.30 Unspecified hydronephrosis; D62 Acute posthemorrhagic anemia; W01.0XXD Fall on same level from slipping, tripping and stumbling without subsequent striking against object, subsequent encounter; I12.9 Hypertensive chronic kidney disease with stage 1 through stage 4 chronic kidney disease, or unspecified chronic kidney disease; N18.9 Chronic kidney disease, unspecified; B96.5 Pseudomonas (aeruginosa) (mallei) (pseudomallei) as the cause of diseases classified elsewhere; R33.9 Retention of urine, unspecified; I25.10 Atherosclerotic heart disease of native coronary artery without angina pectoris; S20.311A Abrasion of right front wall of thorax, initial encounter; S20.419A Abrasion of unspecified back wall of thorax, initial encounter; X58.XXXA Exposure to other specified factors, initial encounter; Y92.230 Patient room in hospital as the place of occurrence of the external cause; E86.0 Dehydration; Z95.1 Presence of aortocoronary bypass graft
CPT/HCPCS: 36415; 80053; 81003; 81015; 85025; 87077; 87086; 87186; A9270-GY; G0515-GO; J1644

== ENCOUNTER 2018-09-24 20:26 | Emergency (ER) | payer MEDICARE, BC ==
--- NOTE | 2018-09-24 20:40 | ED ---
Hypertension - HPI Summary HPI Summary: An 88 y/o female presents to [facility] with a chief complaint of high blood pressure since earlier today. Per EMS, the patients son reports that her BP was 220/80. The patient denies CP, SOB or abdominal pain. However, BILLING REPRESENTATIVE the patient had one episode of N/V and had a temperature of 101, but felt better after vomiting. She currently rates her pain as a 0/10 in severity. She denies a Hx of cardiac disease. She is not on any medication for blood pressure. - History of Current Complaint Stated Complaint: HIGH BP PER EMS Time Seen by Provider: 09/24/18 20:28 Hx Obtained From: Patient, Family/Application Architect Manager, EMS Onset/Duration: Started Hours Ago, Still Present Timing: Constant Reported Blood Pressure Prior To Arrival: 220/80 Aggravating Factor(s): Nothing Alleviating Factor(s): Nothing Associated Signs & Symptoms: Negative - SOB, Chest pain - Allergies/Home Medications Allergies/Adverse Reactions: Allergies Allergy/AdvReac Type Severity Reaction Status Date / Time No Known Allergies Allergy Verified 08/20/18 16:16 PMH/Surg Hx/FS Hx/Imm Hx Cardiovascular History: Reports: Hx Hypertension - in Denies: Hx Coronary Artery Disease Respiratory History: Denies: Hx Asthma Musculoskeletal History: Reports: Hx Osteoporosis Sensory History: Reports: Hx Contacts or Glasses - for reading Denies: Hx Cataracts - removed, Hx Hearing Aid Opthamlomology History: Reports: Hx Contacts or Glasses - for reading Denies: Hx Cataracts - removed - Cancer History Hx Chemotherapy: No Hx Radiation Therapy: No - Surgical History Surgery Procedure, Year, and Place: L cataract removal Hx Anesthesia Reactions: - never had Infectious Disease History: Denies: Traveled Outside the [place] in Last 30 Days - Family History Known Family History: Negative: Cardiac Disease, Hypertension - Social History Alcohol Use: None Substance Use Type: Reports: None Hx Tobacco Use: No Smoking Status (MU): Never Smoked Tobacco Review of Systems Positive: Fever - 101 BILLING REPRESENTATIVE Positive: Other - positive: high blood pressure BILLING REPRESENTATIVE, reportedly 220/80. Negative: Chest Pain Negative: Shortness Of Breath Positive: Vomiting - BILLING REPRESENTATIVE, Nausea - BILLING REPRESENTATIVE. Negative: Abdominal Pain All Other Systems Reviewed And Are Negative: Yes Physical Exam - Summary Physical Exam Summary: Appearance: Well-appearing, Well-nourished, lying in bed comfortably Skin: Warm, dry, no obvious rash Eyes: sclera anicteric, no conjunctival pallor ENT: mucous membranes moist, pharynx appears normal Neck: Supple, nontender Respiratory: Clear to auscultation, no signs of respiratory distress Cardiovascular: Normal S1, S2. No murmurs. Normal distal pulses in tibial and radial bilaterally. Abdomen: Soft, nontender, normal active bowel sounds present Musculoskeletal: Normal, Strength/ROM Intact Neurological: A&Ox3, awake and alert, mentation is normal, speech is fluent and appropriate Psychiatric: affect is normal, does not appear anxious or depressed Triage Information Reviewed: Yes Vital Signs Reviewed: Yes Diagnostics - Laboratory Result Diagrams: 09/24/18 20:54 09/24/18 20:54 Lab Statement: Any lab studies that have been ordered have been reviewed, and results considered in the medical decision making process. - EKG 20:57 Cardiac Rate: NL - 82 bpm EKG Rhythm: Sinus Rhythm Summary of EKG Findings: NSR at 82 BPM, P waves, QRS complex, and T waves are within normal limits, T waves and intervals are normal, no ischemic changes. This is a normal EKG. Re-Evaluation - Re-Evaluation First Eval Re-Evaluation Time: 00:44 Change: Worse Comment: Patient returns to the ED after being discharged due to vomiting in the parking lot. She will be given Zofran. Hypertension Course/Dx - Course Course Of Treatment: An 88 y/o female presents to [facility] with a chief complaint of high blood pressure since earlier today. The physical exam was unremarkable. In the ED course the patient was given Percocet PO and Sodium Chloride IV. Bloodwork, chemistries and urines obtained. Urine blood 2+, Urine RBC 2+. EKG showed NSR at 82 BPM, P waves, QRS complex, and T waves are within normal limits , T waves and intervals are normal, no ischemic changes. This is a normal EKG. The patient will be discharged and follow up with her PCP. The patient is agreeable with this plan. - Diagnoses Provider Diagnoses: Fever, Vomiting Discharge - Sign-Out/Discharge Documenting (check all that apply): Patient Departure - DC Patient Received Moderate/Deep Sedation with Procedure: No - Discharge Plan Condition: Good Disposition: HOME Patient Education Materials: Fever in Adults (ED) Referrals: Jump,Mandi M, SIGN HANGER SUPERVISOR [Primary Care Provider] - Additional Instructions: You may be coming down with a case of gastroenteritis, a viral infection in the gut. Your lab work tonight did not show any significant abnormalities, and since you are feeling better it is ok to get you back to your home. If you get worse, we should see you back here. I am not concerned about your blood pressure. - Billing Disposition and Condition Condition: GOOD Disposition: Home - Attestation Statements Document Initiated by Priya: Yes Documenting Scribe: Eric Pittman Provider For Whom Priya is Documenting (Include Credential): Dennis Thompson MD Scribe Attestation: I, Eric Pittman, scribed for Dennis Thompson MD on 09/25/18 at 0638. Scribe Documentation Reviewed: Yes Provider Attestation: The documentation as recorded by the Eric weeks accurately reflects the service I personally performed and the decisions made by me, Dennis Thompson MD Status of Scrrebeca Document: Viewed Consult Consult: At 20:50 [facility] confirms patient had temperature of 100.7 BILLING REPRESENTATIVE.
[2018-09-24] MEDS ORDERED: NS 0.9% 1000 ML** 1,000 ML IV.FLUID IV ONE (20:42)
[2018-09-24 21:01] LABS: ABS Basophils 0.1 10^3/ul (0-0.2); ABS Eosinophils 0.2 10^3/ul (0-0.6); ABS Lymphocytes 0.3 10^3/ul (1.0-4.8); ABS Monocytes 0.4 10^3/ul (0-0.8); ABS Neutrophils 13.6 10^3/ul (1.5-7.7); ABS Nucleated RBC 0 10^3/ul; Eosinophil % 1.4 %; Hematocrit 31 % (33-41); Hemoglobin 10.2 g/dL (12.0-16.0); Lymphocyte % 2.1 %; Mean Corpuscular HGB Conc 33 g/dL (31-36); Mean Corpuscular Hemoglobin 32 pg (27-31); Mean Corpuscular Volume 97 fL (80-97); Mean Platelet Volume 6.9 fL (7.4-10.4); Nucleated Red Blood Cells % 0; Platelet Count 381 10^3/uL (150-450); Red Blood Count 3.24 10^6 /uL (3.70-4.87); Red Cell Distribution Width 16 % (10.5-15); White Blood Count 14.6 10^3/uL (3.5-10.8)
[2018-09-24 21:20] LABS: Albumin 3.3 g/dL (3.2-5.2); Albumin/Globulin Ratio 1.1 (1-3); BUN/Creatinine Ratio 19.7 (8-20); C Reactive Protein 6.2 mg/L (<8.01); Calcium 9.2 mg/dL (8.6-10.3); EGFR African American 44.2 (>60); EGFR Non-African American 36.6 (>60); Globulin 3.1 g/dL (2-4); Potassium 4.5 mmol/L (3.5-5.0); Total Bilirubin 0.3 mg/dL (0.2-1.0); Total Protein 6.4 g/dL (6.4-8.9)
[2018-09-24 21:21] LABS: Troponin I 0.01 ng/mL (<0.04)
[2018-09-24] MEDS ORDERED: oxyCODONE/Acetamin 5/325 MG* TAB PO ONE (23:24)
[2018-09-24 23:56] LABS: Urine Appearance Clear; Urine Bacteria Absent (Absent); Urine Bilirubin Negative (Negative); Urine Blood 2+ (Negative); Urine Color Yellow; Urine Glucose Negative (Negative); Urine Ketones Negative (Negative); Urine Nitrite Negative (Negative); Urine Protein Negative (Negative); Urine Red Blood Cell 2+(6-10/hpf) (Absent); Urine Specific Gravity 1.016 (1.010-1.030); Urine Urobilinogen Negative (Negative); Urine White Blood Cell Absent (Absent)
[2018-09-25] MEDS ORDERED: Ondansetron ODT TAB* 4 MG SL ONE (00:20)
[2018-09-25 00:26] VITALS: BP 208/84
== END 2018-09-25 00:05 | disposition home or self-care (01) ==
LOC: ED 20:26
DX: R50.9 Fever, unspecified (principal); R11.10 Vomiting, unspecified; M81.0 Age-related osteoporosis without current pathological fracture
CPT/HCPCS: 36415; 80053; 81003; 81015; 83605; 84484; 85025; 85610; 86140; 87040; 93005; 96360; 96361; 99283; A9270-GY

== ENCOUNTER 2019-09-01 14:01 | Emergency (ER) | payer MEDICARE, BC ==
--- NOTE | 2019-09-01 14:49 | ED ---
Neurological HPI - HPI Summary HPI Summary: Patient is an 89 year-old female presenting to [facility] accompanied by family with a chief complaint of feeling unwell throughout this afternoon with an episode of slurred speech an hour ago. Per family, the patient had been walking in the nursing facility with her walker and had complained that she had shoulder and hip pain, so staff sat her down, but then she suddenly became pale, and her head slumped over. EMS was called, and they measured her blood pressure to be hypotensive. At this time, the patient refused to come to the ED, but her family was notified, and they called her PCP who recommended she come to the ED. In the process of transportation to the hospital, the patient was able to ambulate with her walker without gait abnormality. She did have some trouble with her seatbelt although this is typical for her. Her family did observe the patient to have slurred speech lasting for a few seconds that quickly resolved, occurring an hour before arrival. Her family states that her pallor has greatly improved, and the patient states that she is feeling much better without any symptoms. She did not become dizzy, weak, or have a headache during the episode earlier today. She attributes her shoulder and hip pain to previous injury and arthritis. She has been coughing recently with mild shortness of breath and edema in the lower extremities, exacerbated with ambulation. She takes Lasix as needed and often coughs due to GERD. Patient denies any fevers, chills, sweats, erythema of eyes, sore throat, chest pain, abdominal pain, nausea, vomiting, dysuria, hematuria, myalgia, edema, or rash. Past medical history includes hypertension, osteoporosis. Nonsmoker, no alcohol use, no substance use. Medications reviewed. Allergies noted. - History of Current Complaint Chief Complaint: EDNeurologicalDeficit Stated Complaint: STROKE SYMPTOMS PER SON Time Seen by Provider: 09/01/19 14:31 Hx Obtained From: Patient, Family/Screw Cutter Onset/Duration: Sudden Onset, Resolved Timing: Sudden Onset Onset Severity: Moderate Current Severity: None Neurological Deficit Location: Generalized Pain Intensity: 0 Pain Scale Used: 0-10 Numeric Character: Impaired Speech Aggravating: Unknown Alleviating: Spontanious Resolution Associated Signs and Symptoms: Positive: Pain - shoulders, hip, Impaired Speech - lasting a few seconds, Shortness of Breath. Negative: Unsteady Gait, Headache , Weakness, Dizziness, Nausea/Vomiting, Diaphoresis, Fever, Chest Pain - Additional Pertinent History Primary Care Physician: [id number] - Allergy/Home Medications Allergies/Adverse Reactions: Allergies Allergy/AdvReac Type Severity Reaction Status Date / Time No Known Allergies Allergy Verified 09/01/19 14:08 Home Medications: Home Medications Famotidine TAB* [Pepcid 20 MG TAB*] 20 mg PO DAILY 09/01/19 [History Confirmed 09/01/19] Furosemide TAB* [Lasix TAB*] 20 mg PO DAILY 09/01/19 [History Confirmed 09/01/19 ] Metoprolol Succinate XL TAB* [Toprol XL TAB*] 50 mg PO DAILY 09/01/19 [History Confirmed 09/01/19] Multivitamins/Minerals TAB* [Theragran/minerals TAB*] 1 tab PO DAILY 09/01/19 [ History Confirmed 09/01/19] Sennosides/Docusate Sodium [Senna-S Laxative Tablet] 1 - 2 each PO DAILY PRN 06/10 [History Confirmed 09/01/19] PMH/Surg Hx/FS Hx/Imm Hx Endocrine/Hematology History: Denies: Hx Diabetes Cardiovascular History: Reports: Hx Hypertension - in Denies: Hx Coronary Artery Disease Respiratory History: Denies: Hx Asthma Musculoskeletal History: Reports: Hx Osteoporosis Sensory History: Reports: Hx Contacts or Glasses - for reading Denies: Hx Cataracts - removed, Hx Hearing Aid Opthamlomology History: Reports: Hx Contacts or Glasses - for reading Denies: Hx Cataracts - removed - Cancer History Hx Chemotherapy: No Hx Radiation Therapy: No - Surgical History Surgical History: Yes Surgery Procedure, Year, and Place: L cataract removal Hx Anesthesia Reactions: - never had Infectious Disease History: No Infectious Disease History: Denies: Traveled Outside the [place] in Last 30 Days - Family History Known Family History: Negative: Cardiac Disease, Hypertension - Social History Alcohol Use: None Hx Substance Use: No Substance Use Type: Reports: None Hx Tobacco Use: No Smoking Status (MU): Never Smoked Tobacco Review of Systems Negative: Fever, Chills, Skin Diaphoresis Negative: Erythema Negative: Sore Throat Negative: Chest Pain Positive: Shortness Of Breath, Cough Negative: Abdominal Pain, Vomiting, Nausea Negative: dysuria, hematuria Positive: Edema - mild. Negative: Myalgia Negative: Rash Neurological/Mental Status: Other - Negative: dizziness Positive: Slurred Speech. Negative: Headache, Weakness All Other Systems Reviewed And Are Negative: Yes Physical Exam - Summary Physical Exam Summary: Constitutional: Well-developed, Well-nourished, Alert. (-) Distressed Skin: Warm, Dry HENT: Normocephalic; Atraumatic Eyes: Conjunctiva normal Neck: Musculoskeletal ROM normal neck. (-) JVD, (-) Stridor, (-) Tracheal deviation Cardio: Rhythm regular, rate normal, Heart sounds normal; Intact distal pulses; The pedal pulses are 2+ and symmetric. Radial pulses are 2+ and symmetric. (-) Murmur Pulmonary/Chest wall: Effort normal. (-) Respiratory distress, (-) Wheezes, (-) Rales, (+) Crackles in the bases Abd: Soft. (-) Tenderness, (-) Distension, (-) Guarding, (-) Rebound Musculoskeletal: (-) Edema Lymph: (-) Cervical adenopathy Neuro: Alert, Oriented x3, Strength normal, Cranial nerves II-XII are grossly intact. (-) Dysmetria, (-) Nystagmus, (-) Ataxia by finger to nose testing, (-) Sensory deficit. Psych: Mood and affect Normal GCS: 15 Triage Information Reviewed: Yes Vital Signs On Initial Exam: Initial Vitals Temp Pulse Resp BP Pulse Ox 97.6 F 98 16 187/95 98 09/01/19 14:03 09/01/19 14:03 09/01/19 14:03 09/01/19 14:03 09/01/19 14:03 Vital Signs Reviewed: Yes - [place] Coma Scale Best Eye Response: 4 - Spontaneous Best Motor Response: 6 - Obeys Commands Best Verbal Response: 5 - Oriented Coma Scale Total: 15 Procedures - Sedation Patient Received Moderate/Deep Sedation with Procedure: No Diagnostics - Vital Signs Vital Signs Temp Pulse Resp BP Pulse Ox 09/01/19 14:03 97.6 F 98 16 187/95 98 - Laboratory Result Diagrams: 09/01/19 15:13 09/01/19 15:13 Lab Statement: Any lab studies that have been ordered have been reviewed, and results considered in the medical decision making process. - Radiology CXR Radiology Interpretation Completed By: Radiologist Summary of Radiographic Findings: Impression: 1. No acute cardiopulmonary process by radiograph. 2. Large hiatal hernia. ED physician has reviewed this report. - CT Brain CT CT Interpretation Completed By: Radiologist Summary of CT Findings: Impression: 1. No acute intracranial abnormality by CT ( MRI is more sensitive for infarct). 2. Moderate cerebral volume loss. 3. Mild chronic small vessel ischemic disease is likely. ED physician has reviewed this report. - EKG 1455 Cardiac Rate: NL EKG Rhythm: Sinus Rhythm - 85 BPM Summary of EKG Findings: An EKG at 1455 reveals normal sinus rhythm at 85 BPM. No STEMI. ED physician has reviewed and interpreted this EKG. Re-Evaluation - Re-Evaluation First Eval Re-Evaluation Time: 19:15 Comment: Reviewed medical records. Multiple visits in August 2018 consistent with tachycardia, which may be baseline for her. Second Eval Change: Improved Comment: Patient is feeling well, able to ambulate with a steady gait. Discussed results and plan for discharge. Course/Dx - Course Course Of Treatment: Patient is an 89 year-old female presenting following an episode of pallor and head slumping after ambulating as well as a few seconds of slurred speech an hour ago, all of which have since resolved. Patient states shortness of breath and cough recently especially with ambulation, as well as mild edema controlled with Lasix as needed. No dizziness, weakness, headache, chest pain, fever, chills, sweats. Past medical history includes hypertension, osteoporosis. Physical exam significant for crackles in the bases of the lungs. Neurological exam without any abnormalities. I suspect a cardiovascular/ respiratory cause rather than a CVA given pallor, shortness of breath, and low blood pressure associated with these symptoms. IV access obtained. Patient received fluids. Blood work with abnormalities of RBCs 3.41, hemoglobin 10.8, hematocrit 32, absolute monocytes 1.1, D-Dimer 312, BUN 35, creatinine 1.82, glucose 126, BNP 115. Troponin within normal limits at 0.02. An EKG at 1455 reveals normal sinus rhythm at 85 BPM, non-diagnostic for STEMI. Chest XR is negative for acute cardiopulmonary process but shows a large hiatal hernia. Brain CT negative for acute intracranial abnormality but shows moderate cerebral volume loss and chronic small vessel ischemic disease. Reviewed medical records. Multiple visits in August 2018 consistent with tachycardia, which may be baseline for her. Patient is feeling well and is able to ambulate with a steady gait. All results discussed. Transient hypotension is likely related to diuretics. She is tachycardic at baseline. Patient is instructed to hold her diuretics until she can follow up with her PCP. Patient understands and agrees with plan. - Diagnoses Provider Diagnoses: Hypervolemia Discharge ED - Sign-Out/Discharge Documenting (check all that apply): Patient Departure - Patient will be discharged home. - Discharge Plan Condition: Stable Disposition: HOME Patient Education Materials: Hypotension (ED), Tachycardia (ED) Referrals: Tarik Salazar MD [Primary Care Provider] - 3 Days Additional Instructions: Hold diuretics until you can see your doctor. Follow up with your primary care provider in 2-3 days to talk about diuretic use Return to the emergency department for any new or worsening symptoms. - Attestation Statements Document Initiated by Ammonibe: Yes Documenting Scribe: Catina Turner Provider For Whom Ammonibe is Documenting (Include Credential): Arya Kelly MD Scribe Attestation: ICatina, scribed for Arya Kelly MD on 09/01/19 at 2054. Status of Scribe Document: Ready
[2019-09-01 15:23] LABS: ABS Basophils 0.1 10^3/ul (0-0.2); ABS Eosinophils 0.3 10^3/ul (0-0.6); ABS Lymphocytes 1.1 10^3/ul (1.0-4.8); ABS Monocytes 1.1 10^3/ul (0-0.8); ABS Neutrophils 7.3 10^3/ul (1.5-7.7); Eosinophil % 2.7 %; Hematocrit 32 % (35-47); Hemoglobin 10.8 g/dL (12.0-16.0); Lymphocyte % 10.8 %; Mean Corpuscular HGB Conc 34 g/dL (31-36); Mean Corpuscular Hemoglobin 32 pg (27-31); Mean Corpuscular Volume 95 fL (80-97); Mean Platelet Volume 7.3 fL (7.4-10.4); Platelet Count 391 10^3/uL (150-450); Red Blood Count 3.41 10^6 /uL (3.70-4.87); Red Cell Distribution Width 14 % (10-15); White Blood Count 9.7 10^3/uL (3.5-10.8)
--- OUTSIDE RECORDS SUMMARY | 2019-09-01 15:23 | XMS REPORT | Continuity of Care Document ---
:1930 External Reference #:[id number] Author Name Tarik Salazar MD (transmitted by agent of provider Enriqueta Heredia) Address [address] [place] [address] Care Team Providers Name Role Phone Tarik Salazar MD - Hospitalist Care Team Information [employer] Sales Consultant [phone] Problems Active Problems Provider Date Closed intertrochanteric fracture Jorge Chapman MD Onset: 08/21/2018 Edema Tarik Salazar MD Onset: 10/27/2018 Heart failure, unspecified Tarik Salazar MD Onset: 10/27/2018 Chronic kidney disease stage 3 Tarik Salazar MD Onset: 10/27/2018 Essential hypertension Tarik Salazar MD Onset: 10/27/2018 Knee pain Tarik Salazar MD Onset: 10/27/2018 Chronic diastolic heart failure Tarik Salazar MD Onset: 11/16/2018 Constipation Tarik Salazar MD Onset: 11/16/2018 Gastroesophageal reflux disease Tarik Salazar MD Onset: 07/04/2019 Hypertensive chronic kidney disease with stage 1 Tarik Salazar MD Onset: 2018 through stage 4 chronic kidney disease, or unspecified chronic kidney disease Amnesia Tarik Salazar MD Onset: 03/23/2019 Social History Type Date Description Comments Sex Unknown Tobacco Use Start: Unknown Never Smoked Cigarettes Smoking Status Reviewed: 07/04/19 Never Smoked Cigarettes ETOH Use Denies alcohol use Tobacco Use Start: Unknown Patient has never smoked Recreational Drug Use Never Used Drugs Exercise Type/Frequency Exercises rarely due to recent hip fracture Allergies, Adverse Reactions, Alerts Description No Known Drug Allergies Medications Active Medications SIG Qnty Indications Ordering Provider Date Famotidine 1 tab by mouth 90tabs K21.9 Tarik Salazar MD 07/04/2019 20mg Tablets once a day Nystatin Apply to affected 30gm Tarik Salazar MD 12/29/2018 [id number] area twice daily Powder until healing complete Metoprolol Succinate one a day 30tabs Tarik Salazar MD 11/16/2018 ER 50mg Tablets ER 24HR Furosemide 1 by mouth every 30tabs I50.9 Vandana Sangeetha, 10/27/2018 20mg Tablets day as needed. DO Multi For Her once a day Unknown Tablets Senna S 1 -2 tabs daily Unknown 8.6-50mg as needed Tablets Medications Administered in Office Medication SIG Qnty Indications Ordering Provider Date PPD Injection Nurse Visit [facility] 03/25/2019 Immunizations CPT Code Status Date Vaccine Lot # [id number] Given 08/05/2017 Tdap - Tetanus/Diptheria/Acellular Pertussis [id number] Given 08/05/2017 Pneumococcal Conjugate Vaccine 13 Valent For [id number] Intramuscular Use Vital Signs Date Vital Result Comment 07/04/2019 11:27am Height 63 inches 5'3" Weight 170.00 lb Heart Rate 86 /min BP Systolic 160 mmHg BP Diastolic 90 mmHg Body Temperature 97.0 F O2 % BldC Oximetry 96 % BMI (Body Mass Index) 30.1 kg/m2 03/23/2019 1:05pm Height 63 inches 5'3" Weight 164.00 lb Heart Rate 100 /min BP Systolic 173 mmHg BP Diastolic 79 mmHg O2 % BldC Oximetry 98 % BMI (Body Mass Index) 29.0 kg/m2 Results Test Acquired Date Facility Test Result H/L Range Note Laboratory test 03/24/2019 [facility] TSH 3.51 Normal 0.34- 5.[address] (Thyroid mcIU/[place] [address] Stim [phone] Horm) Vitamin D Total 25(Oh) 43.5 ng/mL Normal 20-50 1 Vitamin B12 716 pg/mL Normal 180-914 2 Comp Metabolic 03/24/2019 [facility] Sodium 140 mmol/L Normal 135-[address] [place], [place] [id number] [phone] Potassium 4.0 mmol/L Normal 3.5-5.0 Chloride 103 mmol/L Normal 101-111 Co2 Carbon Dioxide 27 mmol/L Normal 22-32 Anion Gap 10 mmol/L Normal 2-11 Glucose 86 mg/dL Normal 70-100 Blood Urea Nitrogen 37 mg/dL High 6-24 Creatinine 1.90 mg/dL High 0.51-0.95 BUN/Creatinine Ratio 19.5 Normal 8-20 Calcium 10.7 mg/dL High 8.6-10.3 Total Protein 6.9 g/dL Normal 6.4-8.9 Albumin 3.9 g/dL Normal 3.2-5.2 Globulin 3.0 g/dL Normal 2-4 Albumin/Globulin Ratio 1.3 Normal 1-3 Total Bilirubin 0.30 mg/dL Normal 0.2-1.0 Alkaline Phosphatase 73 U/L Normal 34-104 Alt 8 U/L Normal 7-52 Ast 17 U/L Normal 13-39 Egfr Non- 25.1 >60 Egfr 30.3 >60 3 Laboratory test 03/24/2019 [facility] Syphillis Igg Negative Negative finding [address] W/[place] [address] [phone] 1 Total 25-Hydroxyvitamin D2 and D3 (25-OH-VitD) <10 ng/mL (severe deficiency) 10-19 ng/mL (mild to moderate deficiency) 20-50 ng/mL (optimum levels) 51-80 ng/mL (increased risk of hypercalciuria) >80 ng/mL (toxicity possible) 2 Normal Range 180 to 914 Indeterminate Range 145 to 180 Deficient Range <145 3 Because ethnic data is not always readily available, this report includes an eGFR for both -Americans and non- Americans. The National Kidney Disease Education Program (NKDEP) does not endorse the use of the MDRD equation for patients that are not between the ages of 18 and 70, are , have extremes of body size, muscle mass, or nutritional status, or are non- or non-. According to the National Kidney Foundation, irrespective of diagnosis, the stage of the disease is based on the level of kidney function: Stage Description GFR(mL/min/1.73 m(2)) 1 Kidney damage with normal or decreased GFR 90 2 Kidney damage with mild decrease in GFR 60-89 3 Moderate decrease in GFR 30-59 4 Severe decrease in GFR 15-29 5 Kidney failure <15 (or dialysis) Procedures Description No Information Available Medical Devices Description No Information Available Encounters Type Date Location Provider Dx Diagnosis Office Visit 03/23/2019 1:00p [facility] Tarik Salazar MD R41.3 Other amnesia - Suite R I12.9 Hypertensive chronic kidney disease w stg 1-4/unsp chr kdny N18.3 Chronic kidney disease, stage 3 (moderate) Assessments Date Code Description Provider 07/04/2019 I12.9 Hypertensive chronic kidney disease with stage 1 Tarik Salazar MD through [facility] 07/04/2019 N18.3 Chronic kidney disease, stage 3 (moderate) Tarik Salazar MD 07/04/2019 K21.9 Gastro-esophageal reflux disease without Tarik Salazar MD esophagitis 03/28/2019 Z11.1 Encounter for screening for respiratory Nurse Visit [place] [facility] 03/25/2019 Z11.1 Encounter for screening for respiratory Nurse Visit [place] [facility] 03/23/2019 R41.3 Other amnesia Tarik Salazar MD 03/23/2019 I12.9 Hypertensive chronic kidney disease with stage 1 Tarik Salazar MD through [facility] 03/23/2019 N18.3 Chronic kidney disease, stage 3 (moderate) Tarik Salazar MD Plan of Treatment Future Appointment(s):01/02/2020 11:20 am - Tarik Salazar MD at [facility] - Suite 07/04/2019 - Tarik Salazar MDI12.9 Hypertensive chronic kidney disease with stage 1 through [facility] Labs:Basic Metabolic Panel, Ordered: Follow up:6 months.N18.3 Chronic kidney disease, stage 3 (moderate)Comments: We will recheck your kidney function.K21.9 Gastro-esophageal reflux disease without esophagitisNew Medication:Famotidine 20 mg - 1 tab by mouth once a day Functional Status Description No Information Available Mental Status Description No Information Available Referrals Description No Information Available
[2019-09-01 15:31] LABS: Activated Partial Thrombo Time 28.7 seconds (26.0-38.0); INR 1.01 (0.82-1.09)
[2019-09-01 15:52] LABS: Albumin 3.7 g/dL (3.2-5.2); Albumin/Globulin Ratio 1.1 (1-3); BUN/Creatinine Ratio 19.2 (8-20); Calcium 10.2 mg/dL (8.6-10.3); EGFR African American 31.8 (>60); EGFR Non-African American 26.3 (>60); Globulin 3.4 g/dL (2-4); Potassium 4.5 mmol/L (3.5-5.0); Total Bilirubin 0.2 mg/dL (0.2-1.0); Total Protein 7.1 g/dL (6.4-8.9)
[2019-09-01 15:53] LABS: Troponin I 0.02 ng/mL (<0.03)
[2019-09-01] MEDS ORDERED: NS 0.9% 1000 ML** 1,000 ML IV ONE (17:31)
[2019-09-01 21:00] VITALS: BP 228/108
== END 2019-09-01 20:55 | disposition home or self-care (01) ==
LOC: ED 14:01
DX: E87.70 Fluid overload, unspecified (principal); R06.02 Shortness of breath; R05 Cough; R47.81 Slurred speech; Z79.899 Other long term (current) drug therapy
CPT/HCPCS: 36415; 70450; 71045; 80053; 83605; 83880; 84484; 85025; 85379; 85610; 85730; 87040; 93005; 96360; 96361; 99283